=== PATIENT | female | born 1950 | race Caucasian/White ===

== ENCOUNTER → 2019-10-08 12:42 | Outpatient (BNVA) | payer MEDICARE, MEDICAID, SELFPAY | PROVIDERS: Family Provider Family Medicine; PCP Family Medicine; Visit Provider Nurse Practitioner | DX: M25.552 Pain in left hip (principal); M79.601 Pain in right arm; M79.602 Pain in left arm; R29.898 Other symptoms and signs involving the musculoskeletal system; Z79.891 Long term (current) use of opiate analgesic | CPT/HCPCS: 99214 ==

== ENCOUNTER 2020-01-20 11:15 | Outpatient (CLI) | payer MEDICARE, MEDICAID, SELFPAY ==
[2020-01-20 11:43] LABS: Basophils # 0.1 10^3/uL (0.0-0.1); Basophils % 0.7 %; Eosinophils # 0.4 10^3/uL (0.0-0.8); Eosinophils % 3.7 %; Hematocrit 44.9 % (37.0-47.0); Hemoglobin 14.3 g/dL (11.5-15.3); Lymphocytes # 3.2 10^3/uL (0.8-4.8); Lymphocytes % 32.8 %; Mean Corpuscular HGB Conc 31.8 g/dL (30.0-36.0); Mean Corpuscular Hemoglobin 30.6 pg (28.0-34.0); Mean Corpuscular Volume 96.1 fL (81-99); Mean Platelet Volume 9.6 fL (7.4-10.4); Monocytes # 0.7 10^3/uL (0.2-0.9); Monocytes % 6.9 %; Neutrophils # 5.5 10^3/uL (1.8-7.7); Neutrophils % 55.3 %; Nucleated Red Blood Cells % 0 %; Platelet Count 198 10^3/cmm (130-400); Red Blood Count 4.67 10^6/uL (4.1-5.3); Red Cell Distribution Width 12.6 % (12.1-15.1); White Blood Count 9.9 10^3/uL (4.0-10.0)
[2020-01-20 12:16] LABS: Alanine Aminotransferase 12 U/L (0-33); Alkaline Phosphatase 120 IU/L (35-105); Anion Gap 18.2 (5-19); Aspartate Amino Transferase 12 U/L (0-32); Blood Urea Nitrogen 8 mg/dL (8-23); Calcium 9.3 mg/dL (8.5-10.5); Carbon Dioxide 23 mmol/L (22-29); Chloride 102 mmol/L (98-107); Globulin 1.6 g/dL (1.3-4.6); Glucose 116 mg/dL (65-115); Lactate Dehydrogenase 193 U/L (135-214); Osmolality Calculated 285 mOsm/kg (285-295); Potassium 4.2 mmol/L (3.5-5.1); Sodium 139 mmol/L (136-145); Total Bilirubin 0.6 mg/dL (0.15-1.2); Total Protein 5.6 g/dL (6.6-8.7)
--- NOTE | 2020-01-23 15:01 | ONC FU_ITS ---
Dr. Reyna Patient Follow-Up Note Patient: Carly Marvin Unit #: [id number]: 1950 Dicatated By: Selwyn Reyna M.D.Date of Visit:Jan 20, 2020 Onc Med Follow-up/Prog Note Chief Complaint: Lymphoma. History of Present Illness: This is a 69 year-old woman with grade 3 follicular B-cell lymphoma, stage IIIA by clinical evaluation. The lymphoma was initially diagnosed by cervical lymph node biopsy in November of 2009. She had clinical stage IIIA disease with PET/CT suspicious for additional involvement in right submandibular and mesenteric lymph nodes. She was treated with 4 cycles of bendamustine/Rituxan, which she completed in March of 2010. She appeared to have a complete response by followup PET/CT. She was then given maintenance Rituxan at 3-month intervals. As of December 2011, she had completed 6 of 8 planned cycles of maintenance therapy. It was stopped at that point because she had become severely neutropenic, presumably due to Rituxan. She had complete recovery and during subsequent followup there was no evidence of recurrence/progression of the lymphoma. On her for a followup visit in June 2015 she was concerned about a possible lump on the left side of her neck. She appeared to have enlarged submandibular glands bilaterally, but I did not feel any definite lymphadenopathy. She subsequently was scheduled for restaging CT scans, which showed some mild right iliac chain adenopathy measuring in the range of 9-11 mm, felt to be nonspecific. There was no other adenopathy noted, and at that point she just remained on observation. In June 2017 she presented with new left jugulodigastric adenopathy. She was referred to Dr. George. On 08/28/2017 she underwent excisional biopsy of deep left jugulodigastric neck mass and direct laryngoscopy with biopsy of a lesion at the left base of tongue. Pathology was benign. Her other medical illnesses include hypertension, hypercholesterolemia, mitral regurgitation, obstructive sleep apnea, hypothyroidism, and depression. On 04/23/2017 she underwent extracorporeal shockwave lithotripsy to a left renal calculus. She also underwent cystoscopy with left ureteral stent placement. In February 2018 she underwent cystoscopy with laser lithotripsy and ureteral stent placement for another left ureteral stone. INTERIM HISTORY: In July 2018 she had fallen and injured her left hip. Her left hip x-ray on 10/02/2018 showed severe left hip joint osteoarthritis with no evidence for hip fracture. She was evaluated the orthopedic clinic, but she was deemed unsuitable for total hip arthroplasty due to her weight and associated operative risk. On 11/15/2018 she presented to the emergency room with pain and swelling in the left leg, and she was confirmed by venous Doppler to have acute left lower extremity deep vein thrombosis involving the common femoral vein, superficial femoral vein, profunda, popliteal vein, and peroneal trunk. Her CT abdomen/pelvis at that time showed long-term stability of a 2.2 cm mass at the pancreatic head. There was no adenopathy in the abdomen/pelvis. She was noted to have mild narrowing of the colon at the hepatic flexure with adjacent with small adjacent lymph nodes and follow-up colonoscopy was recommended. She continued anticoagulation with apixaban. As of her visit in November 2018 she appeared stable clinically with no obvious progression of the lymphoma. She is seen for a follow-up visit. She is concerned about a new lump on the right side of her neck. She continues to have very limited activity due to her left hip pain. She has only minimal ambulation. Her ECOG score is 3. She has good appetite. She has gained weight. She does not have fever or night sweats. She says she is having a lot of sinus drainage. She has normal cough. She has shortness of breath with effort. She is on CPAP at night. She does not complain of chest pain. She sometimes has difficulty swallowing, and she occasionally has regurgitation. She has having acid reflux symptoms on medication. She has loose stools, typically 3 times a day, but that is chronic. She has no complaints with bladder function. She also has having pain in her left shoulder and arm, and she has limited range of motion at the right shoulder. She does go to pain clinic. She does not complain of headache. She has been having dizziness. She occasionally has numbness in her right hand. Medications: Acetaminophen-Codeine #4 1 Tablet (of 300-60 mg) Oral q 6 hours PRN, Aspirin 1 (81 mg) Tablet Oral daily, Ativan 1 (2 mg) Tablet Oral four times a day PRN, Baclofen 1 Tablet (of 10 mg) Oral four times a day PRN, CeleXA 1 (20 mg) Tablet Oral daily, Dicyclomine HCl 1 Tablet (of 20 mg) Oral four times a day PRN, Eliquis 2.5 Tablet (of 5 mg) Oral b.i.d., Furosemide 1 (40 mg) Tablet Oral daily PRN, Levothyroxine Sodium 1 (100 mcg) Tablet Oral daily, Lipitor 1 (20 mg) Tablet Oral daily, Lisinopril 40 mg - Take 1 Tablet Oral daily, LORazepam 1 Tablet (of 0.5 mg) Oral PRN, Magnesium Oxide 1 (500 ) Tablet Oral daily, Meclizine HCl 1 Tablet (of 25 mg) Oral four times a day, Metoprolol Succinate 1 (25 mg) Tablet SR 24 HR Oral b.i.d., Nitroglycerin 1 Tablet (of 0.4 mg) Tablet, sublingual Sublingual PRN, Ondansetron HCl 1 Tablet (of 8 mg) Oral q 8 hours PRN, Potassium Citrate 1 Tablet (of 15 meq) Oral b.i.d., Protonix 1 Tablet (of 40 mg) Tablet, enteric coated Oral b.i.d., Singulair 1 (10 mg) Tablet Oral daily PRN Allergies: No Known Allergies. Review of Systems: Constitutional - Her energy is low. She has very limited activity due to her left hip. She mostly uses a motorized wheelchair. She can walk a short distance with a wheeled walker. Her appetite is good and she states her weight is up. No fever, night sweats, or hot flashes. ECOG score is 3, ENMT - She has having some sinus drainage. No mouth sores. No sore throat or difficulty swallowing, Hematologic/Lymphatic - No abnormal bruising or bleeding, Respiratory - No shortness of breath. No cough. No pleuritic pain or hemoptysis, Cardiovascular - No angina pain. No palpitations, Gastrointestinal - No nausea or vomiting. She is taking Protonix for heartburn, and it is working okay. She does have more heartburn in the evenings. She has loose stools. No constipation. No blood in the stool or black stools, Genitourinary (F) - No dysuria or hematuria. No urinary frequency. No urgency or incontinence, Musculoskeletal - She has pain in her left hip and her left shoulder and arm. She has limited movement at the right shoulder joint. She is going to pain clinic, Integumentary - No skin complications, Neurologic - No headaches. She has some dizziness. She has occasional tingling in her right hand. No other focal neurologic symptoms, Psychiatric - She has some anxiety, which is adequatelyl managed with citalopram and lorazepam. No depression. No insomnia. Vital Signs: Performed on Jan 20, 2020 12:48 Height - 67.00 in Weight - lbs Temperature - 99.0 F (HIGH) Pulse - 55 /min (LOW) Respiration - 24 /min BP - 152/72 mm(hg) (HIGH) O2 Sat - 96 % Pain - 0 Physical Examination: Constitutional - She does not appear acutely ill, Eyes - Sclerae nonicteric. Conjunctivae clear, ENMT - No lesions noted in the oral cavity, Hematologic/Lymphatic - There are palpable cervical lymph nodes bilaterally, more prominent on the right. There is a small node palpable in the low axillary area on the left side, Respiratory - Lungs show slightly coarse breath sounds bilaterally, Cardiovascular - Heart rhythm is regular. There is a II/ systolic murmur. There is no gallop or rub noted, Abdomen - Distended. Liver and spleen are not enlarged. There is no abdominal mass or ascites noted and there is no inguinal adenopathy, Extremities - Mild pedal edema, Neurologic - No focal neurologic deficits noted. Lab/Imaging: Test performed on Jan 20, 2020 11:32 LDH (Total) 193 U/L Sodium 139 mmol/L Potassium 4.2 mmol/L Chloride 102 mmol/L CO2 23 mmol/L Anion Gap 18.2 BUN 8 mg/dL Creatinine 0.7 mg/dL Cr Clearance (Est) 170.3900 mL/min Glucose 116 mg/dL Calcium 9.3 mg/dL Protein, Total 5.6 g/dL Albumin 4.0 g/dL Globulin 1.6 g/dL Bilirubin, Total 0.6 mg/dL ALT (SGPT) 12 U/L AST (SGOT) 12 U/L Alkaline Phosphatase 120 IU/L WBC 9.9 10 3/uL RBC 4.67 10 6/uL HGB 14.3 g/dL HCT 44.9 % MCV 96.1 fL MCH 30.6 pg MCHC 31.8 g/dL RDW 12.6 % Platelet Count 198 10 3/cmm MPV 9.6 fL Neutrophils 5.5 10 3/uL Lymphocytes 3.2 10 3/uL Monocytes 0.7 10 3/uL Eosinophils 0.4 10 3/uL Basophils 0.1 10 3/uL Neutrophil % 55.3 % Lymphocyte % 32.8 % Monocyte % 6.9 % Eosinophil % 3.7 % Basophils % 0.7 % NRBC % 0 % Impression: 1. Patient with grade 3 follicular B-cell lymphoma, stage IIIA, initially diagnosed by left cervical lymph node biopsy in November 2009. 2. She had a good response to treatment with bendamustine/Rituxan, completed in March of 2010, followed by an abbreviated course of maintenance Rituxan, completed in December 2011. She has since then been on observation/expectant management. Her other medical illnesses include: 3. Hypertension. 4. Hyperlipidemia. 5. Hypothyroidism. 6. Obstructive sleep apnea. 7. Mitral regurgitation. 8. She underwent lithotripsy/ureteral stent placement for left renal calculus in March 2017. 9. Depression. In July 2018 she had fallen at home and sustaining injury to her left hip. Subsequent x-ray showed no evidence of hip fracture, she does have severe osteoarthritis of the left hip joint. She has been deemed ineligible for total hip arthroplasty due to her weight and surgical risk. She is being managed symptomatically. On 11/15/2018 she presented to the emergency room with pain and swelling in the left leg, and she was found to have extensive deep vein thrombosis. She is now on anticoagulation with apixaban. CT abdomen/pelvis at that time showed no evidence of recurrence of lymphoma, but there was mild narrowing of the colon the hepatic flexure, and follow-up colonoscopy was recommended. During follow-up she has had ongoing problems with the left hip pain, which has severely restricted her activity. As of her follow-up visit in November 2018 there had been no evidence of recurrence/progression of her lymphoma. She presents now with new cervical adenopathy and possibly some left axillary adenopathy. Plan: She will be scheduled for restaging PET/CT, but she prefers to put that off until next month. She will have further evaluation as indicated. Signed By: Selwyn Reyna M.D. <<Signature on File>>
== END 2020-01-20 11:16 | disposition home or self-care (01) ==
LOC: ONCMED 11:18
PROVIDERS: PCP Family Medicine; Visit Provider Internal Medicine Medical Oncology
DX: C82.31 Follicular lymphoma grade IIIa, lymph nodes of head, face, and neck (principal); R59.0 Localized enlarged lymph nodes; M25.552 Pain in left hip; I10 Essential (primary) hypertension; E78.5 Hyperlipidemia, unspecified; E03.9 Hypothyroidism, unspecified; G47.33 Obstructive sleep apnea (adult) (pediatric); I34.0 Nonrheumatic mitral (valve) insufficiency; F32.9 Major depressive disorder, single episode, unspecified; Z87.442 Personal history of urinary calculi
CPT/HCPCS: 80053; 83615; 85025; 99214

== ENCOUNTER → 2020-01-27 12:47 | Outpatient (BNVA) | payer MEDICARE, MEDICAID, SELFPAY | PROVIDERS: PCP Family Medicine; Visit Provider Anesthesiology | DX: M25.552 Pain in left hip (principal); M79.601 Pain in right arm; M79.602 Pain in left arm; Z79.891 Long term (current) use of opiate analgesic | CPT/HCPCS: 99214 ==

== ENCOUNTER 2020-02-12 08:09 | Outpatient (CLI) | payer MEDICARE, MEDICAID, SELFPAY ==
--- NOTE | 2020-02-12 08:22 | CT_ITS ---
WS: [id number] CT scan of the neck. Additional two-dimensional coronal and sagittal reconstruction was performed. Clinical Data: LYMPHOMA Comparison: None. DLP: 1786.[address] scans at [facility] use at least one of these dose optimization techniques: automat ed exposure control; mA and/or kV adjustment per patient size (includes targeted exams where dose is matched to clinical indication); or iterative reconstruction. Findings: There is massive lymphadenopathy throughout the neck. The lymphadenopathy extends from the supraclavi cular region to the skull base. There is a marker on the right side of the face which is overlying a lymph node that is within the right parotid gland. The salivary glands are otherwise unremarkable. Th ere is no prevertebral soft tissue swelling. The larynx is symmetric. The thyroid gland shows normal enhancement. The floor of the mouth and parapharyngeal spaces are normal. The oral cavity is unremark able. The common carotid arteries bifurcate normally. There is minimal calcification at the origins of the internal carotid arteries. The cervical spine is osteoarthritic change with disc space narrowing from C4 through C7 with loss of the normal lordotic curve. Prevertebral soft tissue swelling is seen. The lung apices show no abnormalities. The portions of the intracranial circulation which are seen demon strate no abnormalities. No erosion of the skull or skull base is seen. CT/CT neck w con* [id number] Impression: 1. Extensive lymphadenopathy of the neck unchanged from before. 2. Small metal marker overlies a lymph node within the right parotid gland.
[2020-02-12] MEDS: iohexol 300 mg/mL 100 mL Btl IV (08:40)
== END 2020-02-12 08:10 | disposition home or self-care (01) ==
LOC: RADWPI 08:15
PROVIDERS: Family Provider Family Medicine; PCP Family Medicine; Visit Provider Internal Medicine Medical Oncology
DX: C82.28 Follicular lymphoma grade III, unspecified, lymph nodes of multiple sites (principal); R59.9 Enlarged lymph nodes, unspecified
CPT/HCPCS: 70491; Q9967

== ENCOUNTER 2020-03-22 08:23 | Outpatient (CLI) | payer MEDICARE, MEDICAID, SELFPAY ==
--- NOTE | 2020-03-22 09:28 | ONC FU_ITS ---
Dr. Reyna Patient Follow-Up Note Patient: Carly Marvin Unit #: [id number]: [id number] Dicatated By: Selwyn Reyna M.D.Date of Visit:Mar 22, 2020 Onc Med Follow-up/Prog Note Chief Complaint: Lymphoma. History of Present Illness: This is a 69 year-old woman with grade 3 follicular B-cell lymphoma, stage IIIA by clinical evaluation. The lymphoma was initially diagnosed by cervical lymph node biopsy in November of 2009. She had clinical stage IIIA disease with PET/CT suspicious for additional involvement in right submandibular and mesenteric lymph nodes. She was treated with 4 cycles of bendamustine/Rituxan, which she completed in March of 2010. She appeared to have a complete response by followup PET/CT. She was then given maintenance Rituxan at 3-month intervals. As of December 2011, she had completed 6 of 8 planned cycles of maintenance therapy. It was stopped at that point because she had become severely neutropenic, presumably due to Rituxan. She had complete recovery and during subsequent followup there was no evidence of recurrence/progression of the lymphoma. On her for a followup visit in June 2015 she was concerned about a possible lump on the left side of her neck. She appeared to have enlarged submandibular glands bilaterally, but I did not feel any definite lymphadenopathy. She subsequently was scheduled for restaging CT scans, which showed some mild right iliac chain adenopathy measuring in the range of 9-11 mm, felt to be nonspecific. There was no other adenopathy noted, and at that point she just remained on observation. In June 2017 she presented with new left jugulodigastric adenopathy. She was referred to Dr. George. On 08/28/2017 she underwent excisional biopsy of deep left jugulodigastric neck mass and direct laryngoscopy with biopsy of a lesion at the left base of tongue. Pathology was benign. Her other medical illnesses include hypertension, hypercholesterolemia, mitral regurgitation, obstructive sleep apnea, hypothyroidism, and depression. On 04/23/2017 she underwent extracorporeal shockwave lithotripsy to a left renal calculus. She also underwent cystoscopy with left ureteral stent placement. In February 2018 she underwent cystoscopy with laser lithotripsy and ureteral stent placement for another left ureteral stone. INTERIM HISTORY: In July 2018 she had fallen and injured her left hip. Her left hip x-ray on 10/02/2018 showed severe left hip joint osteoarthritis with no evidence for hip fracture. She was evaluated the orthopedic clinic, but she was deemed unsuitable for total hip arthroplasty due to her weight and associated operative risk. On 11/15/2018 she presented to the emergency room with pain and swelling in the left leg, and she was confirmed by venous Doppler to have acute left lower extremity deep vein thrombosis involving the common femoral vein, superficial femoral vein, profunda, popliteal vein, and peroneal trunk. Her CT abdomen/pelvis at that time showed long-term stability of a 2.2 cm mass at the pancreatic head. There was no adenopathy in the abdomen/pelvis. She was noted to have mild narrowing of the colon at the hepatic flexure with adjacent with small adjacent lymph nodes and follow-up colonoscopy was recommended. She continued anticoagulation with apixaban. As of her visit in November 2018 she appeared stable clinically with no obvious progression of the lymphoma. She was seen for a follow-up visit again on 01/20/2020. At that point she had developed recurrence of cervical lymphadenopathy. Her neck CT on 02/12/2020 reeported massive lymphadenopathy throughout the neck. The adenopathy was noted to extend from the supraclavicular region to the skull base. She had further evaluation with PET/CT on 02/14/2020. It showed multiple FDG positive bilateral cervical lymph nodes felt to be most consistent with recurrent follicular B-cell lymphoma. Nodes were evident in the bilateral cervical levels II through V, and small FDG positive lymph nodes were noted in the supraclavicular region bilaterally as well. An index right to a node measured 1.9 cm with SUV 16.9. Uptake at the base of tongue, lingula tonsil, and adenoid tissue was consistent either with lymphoma or reactive uptake. There were no other sites of potential involvement noted on that study. She is seen for a follow-up visit. Her main complaint is that she has trouble with her legs, enough that she is no longer able to ambulate. She has pain with it, and she is getting treatment through the pain clinic. She complains that her blood pressure recently has been high. She sees Dr. Herzog for primary care. She is obviously aware of the adenopathy in her neck, but she does not have any symptoms associated with it. She recalls having had pretty severe night sweating back in 2009 when she originally underwent treatment for lymphoma, but she currently is not having night sweating or any other obvious systemic symptoms. Medications: Acetaminophen-Codeine #3 2 Tablet (of 300-30 mg) Oral q 6 hours PRN, Aspirin 1 (81 mg) Tablet Oral daily, Baclofen 1 Tablet (of 10 mg) Oral four times a day PRN, CeleXA 1 (20 mg) Tablet Oral daily, Dicyclomine HCl 1 Tablet (of 20 mg) Oral four times a day PRN, Eliquis 2.5 Tablet (of 5 mg) Oral b.i.d., Furosemide 1 (40 mg) Tablet Oral daily PRN, Levothyroxine Sodium 1 (100 mcg) Tablet Oral daily, Lipitor 1 (20 mg) Tablet Oral daily, Lisinopril 40 mg - Take 1 Tablet Oral daily, LORazepam 1 Tablet (of 0.5 mg) Oral PRN, Magnesium Oxide 2 (500 ) Tablet Oral daily, Meclizine HCl 1 Tablet (of 25 mg) Oral four times a day PRN, Metoprolol Succinate 1 (25 mg) Tablet SR 24 HR Oral b.i.d., Nitroglycerin 1 Tablet (of 0.4 mg) Tablet, sublingual Sublingual PRN, Ondansetron HCl 1 Tablet (of 8 mg) Oral q 8 hours PRN, Potassium Citrate 1 Tablet (of 15 meq) Oral b.i.d., Protonix 1 Tablet (of 40 mg) Tablet, enteric coated Oral b.i.d., Singulair 1 (10 mg) Tablet Oral daily PRN Allergies: No Known Allergies. Vital Signs: Performed on Mar 22, 2020 08:34 Height - 67.00 in Weight - 323.2 lbs (HIGH) BSA - 2.48 sq.m BMI - 50.62 (HIGH) Temperature - 97.0 F (LOW) Pulse - 70 /min Respiration - 26 /min BP - 171/75 mm(hg) (HIGH) O2 Sat - 96 % Pain - 8 Physical Examination: Constitutional - She has limited mobility, Eyes - Sclerae nonicteric. Conjunctivae clear, ENMT - No lesions noted in the oral cavity, Hematologic/Lymphatic - There is bilateraly cervical adenopathy, more prominent on the right, measuring 3-4 cm. There is no clavicular or axillary adenopathy noted, Respiratory - Lungs sound clear, Cardiovascular - Heart rhythm is regular. There is a II/ systolic murmur. There is no gallop or rub noted, Abdomen - Distended. Liver and spleen are not enlarged. There is no abdominal mass or ascites noted and there is no inguinal adenopathy, Extremities - Mild lower extremity edema, Neurologic - No focal neurologic deficits noted. Lab/Imaging: Test performed on Jan 20, 2020 11:32 LDH (Total) 193 U/L Sodium 139 mmol/L Potassium 4.2 mmol/L Chloride 102 mmol/L CO2 23 mmol/L Anion Gap 18.2 BUN 8 mg/dL Creatinine 0.7 mg/dL Cr Clearance (Est) 170.3900 mL/min Glucose 116 mg/dL Calcium 9.3 mg/dL Protein, Total 5.6 g/dL Albumin 4.0 g/dL Globulin 1.6 g/dL Bilirubin, Total 0.6 mg/dL ALT (SGPT) 12 U/L AST (SGOT) 12 U/L Alkaline Phosphatase 120 IU/L WBC 9.9 10 3/uL RBC 4.67 10 6/uL HGB 14.3 g/dL HCT 44.9 % MCV 96.1 fL MCH 30.6 pg MCHC 31.8 g/dL RDW 12.6 % Platelet Count 198 10 3/cmm MPV 9.6 fL Neutrophils 5.5 10 3/uL Lymphocytes 3.2 10 3/uL Monocytes 0.7 10 3/uL Eosinophils 0.4 10 3/uL Basophils 0.1 10 3/uL Neutrophil % 55.3 % Lymphocyte % 32.8 % Monocyte % 6.9 % Eosinophil % 3.7 % Basophils % 0.7 % NRBC % 0 % Impression: 1. Patient with grade 3 follicular B-cell lymphoma, stage IIIA, initially diagnosed by left cervical lymph node biopsy in November 2009. 2. She had a good response to treatment with bendamustine/Rituxan, completed in March of 2010, followed by an abbreviated course of maintenance Rituxan, completed in December 2011. She has since then been on observation/expectant management. Her other medical illnesses include: 3. Hypertension. 4. Hyperlipidemia. 5. Hypothyroidism. 6. Obstructive sleep apnea. 7. Mitral regurgitation. 8. She underwent lithotripsy/ureteral stent placement for left renal calculus in March 2017. 9. Depression. In July 2018 she had fallen at home and sustaining injury to her left hip. Subsequent x-ray showed no evidence of hip fracture, she does have severe osteoarthritis of the left hip joint. She has been deemed ineligible for total hip arthroplasty due to her weight and surgical risk. She is being managed symptomatically. On 11/15/2018 she presented to the emergency room with pain and swelling in the left leg, and she was found to have extensive deep vein thrombosis. She is now on anticoagulation with apixaban. CT abdomen/pelvis at that time showed no evidence of recurrence of lymphoma, but there was mild narrowing of the colon the hepatic flexure, and follow-up colonoscopy was recommended. During follow-up she has had ongoing problems with the left hip pain, which has severely restricted her activity. As of her follow-up visit in November 2018 there had been no evidence of recurrence/progression of her lymphoma. In December 2019 she presented with obvious cervical adenopathy bilaterally. This was confirmed with subsequent neck CT and restaging PET/CT. The PET/CT, though, showed no other areas of obvious involvement with lymphoma, and thus far she has not been overtly symptomatic with the cervical adeonopathy. Plan: As long as her lymphoma is localized in the neck area and not causing obvious symptoms, she she can be followed on observation/expectant management. I will plan to see her again in July, which will be a 6-month interval from her scans. In the meantime, she is to follow-up with Dr. Herzog regarding her elevated blood pressure. Signed By: Selwyn Reyna M.D. <<Signature on File>>
== END 2020-03-22 08:24 | disposition home or self-care (01) ==
LOC: ONCMED 08:23
PROVIDERS: PCP Family Medicine; Visit Provider Internal Medicine Medical Oncology
DX: C82.31 Follicular lymphoma grade IIIa, lymph nodes of head, face, and neck (principal); I10 Essential (primary) hypertension; E78.5 Hyperlipidemia, unspecified; E03.9 Hypothyroidism, unspecified; G47.33 Obstructive sleep apnea (adult) (pediatric); I34.0 Nonrheumatic mitral (valve) insufficiency; F32.9 Major depressive disorder, single episode, unspecified; Z96.0 Presence of urogenital implants; Z87.442 Personal history of urinary calculi; Z86.718 Personal history of other venous thrombosis and embolism; Z79.01 Long term (current) use of anticoagulants
CPT/HCPCS: G0463

== ENCOUNTER → 2020-04-09 08:11 | Outpatient (BNVA) | payer MEDICARE, MEDICAID, SELFPAY | PROVIDERS: PCP Family Medicine; Visit Provider Anesthesiology | DX: M25.552 Pain in left hip (principal); M79.601 Pain in right arm; M79.602 Pain in left arm; Z79.891 Long term (current) use of opiate analgesic | CPT/HCPCS: 99214 ==

== ENCOUNTER → 2020-07-06 09:14 | Outpatient (BNVA) | payer MEDICARE, SELFPAY | PROVIDERS: PCP Family Medicine; Visit Provider Anesthesiology | DX: M25.552 Pain in left hip (principal); M25.512 Pain in left shoulder; M79.601 Pain in right arm; M79.602 Pain in left arm; Z79.891 Long term (current) use of opiate analgesic | CPT/HCPCS: 99214 ==

== ENCOUNTER 2020-08-24 08:11 | Outpatient (CLI) | payer MEDICARE, MEDICAID, SELFPAY ==
[2020-08-24 08:43] LABS: Basophils # 0.1 10^3/uL (0.0-0.1); Basophils % 0.5 %; Eosinophils # 0.4 10^3/uL (0.0-0.8); Eosinophils % 3.7 %; Hematocrit 43.4 % (37.0-47.0); Hemoglobin 13.7 g/dL (11.5-15.3); Lymphocytes # 3.1 10^3/uL (0.8-4.8); Lymphocytes % 32.8 %; Mean Corpuscular HGB Conc 31.6 g/dL (30.0-36.0); Mean Corpuscular Hemoglobin 30.6 pg (28.0-34.0); Mean Corpuscular Volume 96.9 fL (81-99); Mean Platelet Volume 9.9 fL (7.4-10.4); Monocytes # 0.6 10^3/uL (0.2-0.9); Monocytes % 6.7 %; Neutrophils # 5.35 10^3/uL (1.8-7.7); Neutrophils % 55.8 %; Nucleated Red Blood Cells % 0 %; Platelet Count 189 10^3/cmm (130-400); Red Blood Count 4.48 10^6/uL (4.1-5.3); Red Cell Distribution Width 12.4 % (12.1-15.1); White Blood Count 9.6 10^3/uL (4.0-10.0)
[2020-08-24 09:09] LABS: Alanine Aminotransferase 18 U/L (0-33); Albumin Level 3.5 g/dL (3.5-5.2); Alkaline Phosphatase 105 IU/L (35-105); Anion Gap 12.4 (5-19); Aspartate Amino Transferase 15 U/L (0-32); Blood Urea Nitrogen 15 mg/dL (8-23); Carbon Dioxide 28 mmol/L (22-29); Chloride 102 mmol/L (98-107); Globulin 2.1 g/dL (1.3-4.6); Glucose 126 mg/dL (65-115); Lactate Dehydrogenase 162 U/L (135-214); Osmolality Calculated 288 mOsm/kg (285-295); Potassium 4.4 mmol/L (3.5-5.1); Sodium 138 mmol/L (136-145); Total Bilirubin 0.4 mg/dL (0.15-1.2); Total Protein 5.6 g/dL (6.6-8.7)
== END 2020-08-24 08:12 | disposition home or self-care (01) ==
LOC: ONCMED 15:17
PROVIDERS: PCP Family Medicine; Visit Provider Internal Medicine Medical Oncology
DX: C82.28 Follicular lymphoma grade III, unspecified, lymph nodes of multiple sites (principal); I10 Essential (primary) hypertension
CPT/HCPCS: 80053; 83615; 85025

== ENCOUNTER 2020-08-30 06:01 | Outpatient (CLI) | payer MEDICARE, MEDICAID, SELFPAY ==
--- NOTE | 2020-08-30 15:25 | ONC FU_ITS ---
Dr. Reyna Patient Follow-Up Note Patient: Carly Marvin Unit #: [id number]: 1950 Dicatated By: Selwyn Reyna M.D.Date of Visit:Aug 30, 2020 Onc Med Follow-up/Prog Note Chief Complaint: Lymphoma. History of Present Illness: This is a 70 year-old woman with grade 3 follicular B-cell lymphoma, stage IIIA by clinical evaluation. The lymphoma was initially diagnosed by cervical lymph node biopsy in November of 2009. She had clinical stage IIIA disease with PET/CT suspicious for additional involvement in right submandibular and mesenteric lymph nodes. She was treated with 4 cycles of bendamustine/Rituxan, which she completed in March of 2010. She appeared to have a complete response by followup PET/CT. She was then given maintenance Rituxan at 3-month intervals. As of December 2011, she had completed 6 of 8 planned cycles of maintenance therapy. It was stopped at that point because she had become severely neutropenic, presumably due to Rituxan. She had complete recovery and during subsequent followup there was no evidence of recurrence/progression of the lymphoma. On her for a followup visit in June 2015 she was concerned about a possible lump on the left side of her neck. She appeared to have enlarged submandibular glands bilaterally, but I did not feel any definite lymphadenopathy. She subsequently was scheduled for restaging CT scans, which showed some mild right iliac chain adenopathy measuring in the range of 9-11 mm, felt to be nonspecific. There was no other adenopathy noted, and at that point she just remained on observation. In June 2017 she presented with new left jugulodigastric adenopathy. She was referred to Dr. George. On 08/28/2017 she underwent excisional biopsy of deep left jugulodigastric neck mass and direct laryngoscopy with biopsy of a lesion at the left base of tongue. Pathology was benign. Her other medical illnesses include hypertension, hypercholesterolemia, mitral regurgitation, obstructive sleep apnea, hypothyroidism, and depression. On 04/23/2017 she underwent extracorporeal shockwave lithotripsy to a left renal calculus. She also underwent cystoscopy with left ureteral stent placement. In February 2018 she underwent cystoscopy with laser lithotripsy and ureteral stent placement for another left ureteral stone. In October 2018 she was diagnosed with extensive deep vein thrombosis of the left leg. At that point she began on anticoagulation with apixaban. INTERIM HISTORY: In December 2019 she presented with recurrence of cervical lymphadenopathy. Her neck CT on 02/12/2020 reeported massive lymphadenopathy throughout the neck. The adenopathy was noted to extend from the supraclavicular region to the skull base. She had further evaluation with PET/CT on 02/14/2020. It showed multiple FDG positive bilateral cervical lymph nodes felt to be most consistent with recurrent follicular B-cell lymphoma. Nodes were evident in the bilateral cervical levels II through V, and small FDG positive lymph nodes were noted in the supraclavicular region bilaterally as well. An index right to a node measured 1.9 cm with SUV 16.9. Uptake at the base of tongue, lingula tonsil, and adenoid tissue was consistent either with lymphoma or reactive uptake. There were no other sites of potential involvement noted on that study. As she was not overtly symptomatic with the cervical adenopathy, she continued on observation/expectant management. She is seen for a follow-up visit. She has been feeling about the same. She continues to have significant left hip pain, which limits her activity. Her ECOG score is 3. She has good appetite. She has no fever or night sweats. She does complain that she itches a lot. She is on CPAP. She says her breathing is about like it was. She has just occasional nonproductive cough. She does not complain of chest pain. She has no GI complaints other than diarrhea, which she says is normal for her. Bladder function has been adequate with furosemide. She has no other joint or bone pain. She does not complain of headache. She has occasional orthostatic lightheadedness. She occasionally has numbness in her legs. Medications: Acetaminophen-Codeine #3 2 Tablet (of 300-30 mg) Oral q 6 hours PRN, Aspirin 1 (81 mg) Tablet Oral daily, Baclofen 1 Tablet (of 10 mg) Oral four times a day PRN, CeleXA 1 (20 mg) Tablet Oral daily, Centrum Silver 50+Women 1 Tablet Oral daily, Dicyclomine HCl 1 Tablet (of 20 mg) Oral four times a day PRN, Eliquis 2.5 Tablet (of 5 mg) Oral b.i.d., Furosemide 1 (40 mg) Tablet Oral daily PRN, Levothyroxine Sodium 1 (100 mcg) Tablet Oral daily, Lipitor 1 (20 mg) Tablet Oral daily, Lisinopril 40 mg - Take 1 Tablet Oral daily, LORazepam 1 Tablet (of 0.5 mg) Oral PRN, Magnesium Oxide 2 (500 ) Tablet Oral daily, Meclizine HCl 1 Tablet (of 25 mg) Oral four times a day PRN, Metoprolol Succinate 1 (25 mg) Tablet SR 24 HR Oral b.i.d., Nitroglycerin 1 Tablet (of 0.4 mg) Tablet, sublingual Sublingual PRN, Ondansetron HCl 1 Tablet (of 8 mg) Oral q 8 hours PRN, Potassium Citrate 1 Tablet (of 15 meq) Oral b.i.d., Protonix 1 Tablet (of 40 mg) Tablet, enteric coated Oral b.i.d., Singulair 1 (10 mg) Tablet Oral daily PRN Allergies: No Known Allergies. Vital Signs: Performed on Aug 30, 2020 13:03 Height - 67.00 in Weight - 330 lbs (HIGH) BSA - 2.50 sq.m BMI - 51.69 (HIGH) Temperature - 97.6 F (LOW) Pulse - 65 /min Respiration - 18 /min O2 Sat - 96 % Physical Examination: Constitutional - She appears somewhat weak generally and she has limited mobility, Eyes - Sclerae nonicteric. Conjunctivae clear, ENMT - No lesions noted in the oral cavity, Hematologic/Lymphatic - There are small posterior cervical nodes palpable bilaterally and there appears to be a more prominent node in the submandibular area on the right side. There is some associated soft tissue swelling. I do not feel any clavicular or axillary adenopathy, Respiratory - Lungs sound clear, Cardiovascular - Heart rhythm is regular. There is a II/ systolic murmur. There is no gallop or rub noted, Abdomen - Distended. Liver and spleen are not enlarged. There is no abdominal mass or ascites noted and there is no inguinal adenopathy, Extremities - Mild lower extremity edema, Neurologic - No focal neurologic deficits noted. Lab/Imaging: CBC shows hemoglobin 13.7 g, white blood cell count 9600, and platelet count 189,000. Comprehensive metabolic profile is unremarkable. LDH is normal at 162 U/L. Problem List: 1. Grade 3 follicular B-cell lymphoma, stage IIIA, initially diagnosed by left cervical lymph node biopsy in November 2009. 2. In October 2018 she was found to have extensive deep vein thrombosis of the left leg. She has been on anticoagulation with apixaban. 3. Hypertension. 4. Hyperlipidemia. 5. Hypothyroidism. 6. Obstructive sleep apnea. 7. Mitral regurgitation. 8. She underwent lithotripsy/ureteral stent placement for left renal calculus in March 2017. 9. Depression. Problems Addressed with this Encounter and Plan: Grade 3 follicular B-cell lymphoma, stage IIIA, initially diagnosed by left cervical lymph node biopsy in November 2009. She had a good response to treatment with bendamustine/Rituxan, completed in March of 2010, followed by an abbreviated course of maintenance Rituxan, completed in December 2011. She was then folllowed on observation/expectant management. In December 2019 she presented with obvious cervical adenopathy bilaterally. This was confirmed with subsequent neck CT and restaging PET/CT. The PET/CT, though, showed no other areas of obvious involvement with lymphoma. As she was not overtly symptomatic with the cervical adeonopathy, there appeared to be no indication for treatment. She has since then remained stable clinically. She still has very limited activity due to her left hip pain. She does not have any evidence for symptomatic progression of the lymphoma. As such, she remains on observation/expectant management. I will see her again with restaging CT scans in 6 months. Signed By: Selwyn Reyna M.D. <<Signature on File>>
== END 2020-08-30 06:02 | disposition home or self-care (01) ==
LOC: ONCMED 06:04
PROVIDERS: PCP Family Medicine; Visit Provider Internal Medicine Medical Oncology
DX: C82.31 Follicular lymphoma grade IIIa, lymph nodes of head, face, and neck (principal); M25.552 Pain in left hip; Z92.22 Personal history of monoclonal drug therapy
CPT/HCPCS: G0463

== ENCOUNTER → 2020-10-01 08:03 | Outpatient (BNVA) | payer MEDICARE, SELFPAY | PROVIDERS: PCP Family Medicine; Visit Provider Anesthesiology | DX: M25.552 Pain in left hip (principal); Z79.891 Long term (current) use of opiate analgesic | CPT/HCPCS: 99213 ==

== ENCOUNTER 2020-11-05 16:34 | Emergency (ER) | payer MEDICARE, MEDICAID, SELFPAY ==
[2020-11-05 16:38] VITALS: BP 125/68; PULSE 82; RESP 18; TEMP 36.8; O2SAT 93; BMI 52.9
[2020-11-05 16:44] VITALS: BP 125/68; PULSE 80; RESP 20; O2SAT 94
--- NOTE | 2020-11-05 16:53 | XRR_ITS ---
PROCEDURE INFORMATION: Exam: XR Left Hip Exam date and time: 11/05/2020 5:09 PM Age: 70 years old Clinical indication: Hip pain; Left hip; Additional info: Fall pain TECHNIQUE: Imaging protocol: XR Left hip. Views: 2 or 3 views hip with pelvis when performed. COMPARISON: CT abdomen pelvis w con* [id number] 11/15/2018 2:59 PM FINDINGS: Bones/joints: No acute displaced fracture or dislocation. Severe osteoarthritis of the hip. Soft tissues: Unremarkable. XR/XR hip LT 2-3V wo/w pel* [id number] IMPRESSION: 1. No acute displaced fracture or dislocation. 2. Nondisplaced or incomplete fracture may not be evident on this exam. If there is continued clinical concern for femoral neck fracture consider CT or MRI.
--- NOTE | 2020-11-05 16:53 | XRR_ITS ---
PROCEDURE INFORMATION: Exam: XR Left Knee Exam date and time: 11/05/2020 5:09 PM Age: 70 years old Clinical indication: Pain; Knee; Left TECHNIQUE: Imaging protocol: XR Left knee. Views: 3 views. COMPARISON: No relevant prior studies available. FINDINGS: Bones/joints: No acute displaced fracture or dislocation. A posterior fabella is noted. Severe joint space narrowing, greatest in the medial compartment with remodeling of the joint surfaces and marginal osteophytosis. Soft tissues: Normal. XR/XR knee LT 3V* [id number] IMPRESSION: Severe tricompartmental osteoarthritis.
--- NOTE | 2020-11-05 16:54 | W.ED.WEAKNES ---
HPI - Weakness General: Chief complaint: Weakness Stated complaint: GENERALIZED WEAKNESS Time Seen by Provider: 11/05/20 16:43 History of Present Illness: HPI Narrative: 70-year-old female fell at home. She usually gets out of bed to go to the restroom. She got up with a walker stumbled tripped and fell. She has had problems in the past with ambulation as well she only ambulates with a walker. We discussed with her she admits that she stays in bed except for when she has to go to the restroom. Her family brings her all of her meals. She denies striking her head she denies loss consciousness she has no chest pain. MD Complaint: generalized weakness and difficulty walking Duration: progressively worsening Location: LLE (Hip and knee) Severity: moderate Quality: aching Relieving factors: movement Exacerbating factors: rest Associated symptoms: Reports myalgias; Denies chest pain, chills, confusion, melena, decreased appetite, diaphoresis, dysuria, easy bruising, fever(s), headache(s), nausea, rash, short of breath, syncope or vomiting Review of Systems Const: Denies: fever(s), chills or diaphoresis ENMT: Denies: throat pain, ear or mastoid pain, nasal discharge or nasal congestion Card: Denies: chest pain or syncope Resp: Denies: dyspnea, productive cough or non-productive cough GI: Denies: nausea, vomiting or melena : Denies: dysuria Skin/Breast: Denies: rash or pruritus Neuro: Denies: headache(s) or confusion Godwin/Lymph: Denies: easy bruising PFSH ED PFSH: Medical History Benign essential HTN Bilateral arm pain Dyslipidemia (high LDL; low HDL) Encounter for long-term opiate analgesic use History of DVT (deep vein thrombosis) History of rectal injury rectal tear surgery Left hip pain Non-Hodgkin lymphoma Obstructive sleep apnea Opioid contract exists Ventricular arrhythmia Surgical History History of ureter stent Hx of cholecystectomy Hx of dilation and curettage Hx of hysterectomy Hx of laparoscopic gastric banding Hx of tubal ligation Family History Mother Diabetes Hypertension Father Cancer lung Social History Smoking and tobacco status: never smoked Second hand smoke exposure: Yes Alcohol intake: never History of recent travel: No Physical Exam Const: GENERAL APPEARANCE: cooperative ORIENTATION/CONSCIOUSNESS: Yes awake, Yes oriented to person, Yes oriented to place and Yes oriented to time HENMT: COMMON NORMALS: normocephalic, atraumatic, hearing grossly normal bilaterally, external ears normal, EAC's normal, TM's normal bilaterally, Normal nasal mucous membranes and turbinates present, moist oral mucous membranes and oropharynx normal HEAD & SCALP: normocephalic and atraumatic NOSE: Normal nasal mucous membranes and turbinates present EXTERNAL EAR: Yes external ears normal EXTERNAL AUDITORY CANAL: EAC's normal TYMPANIC MEMBRANE: TM's normal bilaterally Eye: COMMON NORMALS: Equal, round and reactive pupils present, EOMs intact bilaterally, conjunctivae normal and no scleral icterus CONJUNCTIVA: Yes conjunctivae normal PUPIL: Yes Equal, round and reactive pupils present Neck/C-Spine: COMMON NORMALS: full ROM, no lymphadenopathy, supple and no JVD Resp: COMMON NORMALS: normal respiratory effort, No retractions, No use of accessory muscles and clear to auscultation bilaterally AUSCULTATION: clear to auscultation bilaterally Cardio: COMMON NORMALS: no JVD, regular rate, regular rhythm and No murmurs present (Cardio) RATE: regular rate RHYTHM: regular rhythm GI: COMMON NORMALS: Soft to palpation and No hepatosplenomegaly present AUSCULTATION: Yes normoactive bowel sounds PALPATION: Yes Soft to palpation, No Tenderness to palpation present (GI), No Guarding due to palpation present (GI) and Yes No hepatosplenomegaly present Extremity: COMMON NORMALS: normal to inspection, capillary refill normal, no clubbing, cyanosis or edema, no calf tenderness and no pedal edema Neuro: SENSORIUM/ORIENTATION: Yes oriented to person, Yes oriented to place and Yes oriented to time Skin: COMMON NORMALS: no rashes or lesions noted GENERAL SKIN EXAM: no rashes or lesions noted Course Vital Signs: Vital signs: Vital Signs Temperature 98.2 F 11/05/20 16:38 Pulse Rate 90 11/05/20 20:34 Respiratory Rate 23 H 11/05/20 20:34 Blood Pressure 143/82 11/05/20 20:34 Pulse Oximetry 97 11/05/20 20:34 MDM - Weakness MDM Narrative: Medical decision making narrative: No acute fracture on x-rays. Reviewed with the patient will discharge home no change in medications. Briefly discussed with her consideration of changing level of care due to the amount of assistance she needs. At this point she prefer to stay home with the assistance of family. Discharge Plan Discharge Patient Disposition: Home Clinical Impression: Fall, Left hip pain Condition: Stable Prescriptions: No Action lisinopril 40 mg tablet 40 mg PO DAILY RF: 0 atorvastatin 20 mg tablet 20 mg PO DAILY RF: 0 alprazolam [Xanax] 0.5 mg tablet 0.5 mg PO BID RF: 0 aspirin 81 mg tablet,chewable 81 mg PO .1 at HS RF: 0 citalopram 20 mg tablet 20 mg PO DAILY RF: 0 potassium citrate 15 mEq tablet extended release 15 meq PO BID RF: 0 baclofen 10 mg tablet 10 mg PO QID RF: 0 levothyroxine 100 mcg capsule 100 mcg PO DAILY RF: 0 furosemide [Lasix] 40 mg tablet 40 mg PO DAILY RF: 0 Eliquis 2.5 mg tablet 2.5 mg PO BID RF: 0 pantoprazole [Protonix] 40 mg tablet,delayed release (DR/EC) 40 mg PO BID RF: 0 metoprolol tartrate 25 mg tablet 25 mg PO BID 30 Days Qty: 60 RF: 5 acetaminophen-codeine 300-30 mg tablet 2 tab PO QID PRN (Reason: pain) 30 Days Qty: 240 RF: 2 diclofenac sodium [Voltaren] 1 % gel 4 g TOPICAL QID Qty: 400 RF: 2 Discharge Orders: Discharge ED (Routine); Ordered 11/05/20 Ordered By: Tawanda De Los Santos Referrals: Akira Herzog MD [Primary Care Provider] - Discharge Diet: Usual diet Discharge Activity: Resume usual activity Patient Instructions: Opioid Safety Coding Level of Care Code ED Cabinetmaker Helper for Sharon Chinchilla
[2020-11-05 17:05] VITALS: BP 122/67; PULSE 84; RESP 16
--- NOTE | 2020-11-05 18:18 | PC.NURSE ---
One of the patient's daughters named Eladia called asking for an update on the patient's condition and disposition. The daughter was not on the list of contacts, so I went asked the patient for verbal consent to discuss her information with the daughter.The patient did consent to discussing her information. I informed the daughter that the patient was resting in bed and that she is up for discharged and informed her that the tests found no change in acuity or injury. The daughter was very pleased and understanding with everything.
[2020-11-05 18:44] VITALS: BP 106/65; PULSE 79; RESP 22; O2SAT 95
--- NOTE | 2020-11-05 20:31 | PC.NURSE ---
dc delayed due to pt's daughter not being comfortable with pt being dc to home. Dr Patricia consulted with pt and family and pt states she wishes to go home. Pt A&0X3, is able to verbalized understanding of risks and benefits of hospital admission. Pt dc to home
[2020-11-05 20:34] VITALS: BP 143/82; PULSE 90; RESP 23; O2SAT 97
--- NOTE | 2020-11-09 10:40 | DCPLANNER ---
medical care manager had message to speak with patients daughter about home health for patient. medical care manager spoke with patients daughter, who stated that patient is needing home health and in home services. medical care manager explained to the daughter that catalytic case operator did not have any notes or documentation to support patient needing home health services. medical care manager asked if patient has been seen by a provider other than the ER, catalytic case operator was told that patient sees primary care physician, Dr. Herzog, and Dr. Reyna. medical care manager called the office Dr. Reyna, spoke with Rhea to see if that office would be able to order home health for patient. medical care manager was told that the office will schedule a follow up appointment for patient with a provider, and will order the home health for patient. medical care manager called patients daughter and informed that daughter that Dr. Mosley office will schedule a follow up appointment for patient.
== END 2020-11-05 20:30 | disposition home or self-care (01) ==
PROVIDERS: Emergency Provider Family Medicine; PCP Family Medicine
DX: M25.552 Pain in left hip (principal); W18.30XA Fall on same level, unspecified, initial encounter; Z79.82 Long term (current) use of aspirin; Z79.01 Long term (current) use of anticoagulants; I10 Essential (primary) hypertension; E78.5 Hyperlipidemia, unspecified; G47.33 Obstructive sleep apnea (adult) (pediatric)
CPT/HCPCS: 73502; 73562; 99282

== ENCOUNTER → 2021-01-13 09:22 | Outpatient (BNVA) | payer MEDICARE, MEDICAID, SELFPAY | PROVIDERS: PCP Family Medicine; Visit Provider Anesthesiology | DX: M25.552 Pain in left hip (principal); Z79.891 Long term (current) use of opiate analgesic | CPT/HCPCS: 99213 ==

== ENCOUNTER 2021-02-18 11:07 | Outpatient (CLI) | payer MEDICARE, MEDICAID, SELFPAY ==
--- NOTE | 2021-02-18 11:16 | CT_ITS ---
WS: [id number] CT CHEST, ABDOMEN, AND PELVIS TECHNIQUE: Contrast-enhanced CT of the chest, abdomen, and pelvis with coronal and sagittal reformatt ed images. CLINICAL INFORMATION: LYMPHOMA COMPARISON: PET/CT February 14, 2020, CT abdomen pelvis October 2018 and February 2018 DLP: 2769.[address] scans at [facility] use at least one of these dose optimization techniques: automat ed exposure control; mA and/or kV adjustment per patient size (includes targeted exams where dose is matched to clinical indication); or iterative reconstruction. CT CHEST: Lymphadenopathy partially visualized in the lower neck at the thoracic inlet. largest lymph nodes measure up to 2.1 CM Involving the supra clavicular regions bilaterally and lower cervical dilan ins. Mild chronic emphysematous changes. No acute pulmonary infiltrates. Subsegmental atelectasis and fibr osis in the lung bases. Calcified granuloma right upper lobe. Normal thyroid gland. Aortic calcification. No mediastinal or hilar lymphadenopathy. Normal caliber t horacic aorta. No axillary lymphadenopathy. Hypertrophic changes thoracic spine. CT ABDOMEN AND PELVIS: Cholecystectomy. Prior hysterectomy and appendectomy. Mild enlargement of the right hepatic lobe. Li abena is otherwise normal. Normal spleen. Proximal duodenum is normal in appearance. Prior gastric band ing. Small esophageal hiatal hernia. Normal portal vein and splenic vein. Normal spleen. Fatty atroph y of the pancreas. Stable 2.2 cm low-attenuation lesion in the pancreatic head. Normal common bile du ct. Adrenal glands are normal. A few prominent lymph nodes in the arnold hepatis are unchanged. Enlarging periaortic lymph nodes have progressed compared to 4 19,019 the largest measuring 12 mm. Le ft proximal common iliac lymph node progressed from previous measuring 11 mm. Additional smaller shot ty periaortic lymph nodes. No evidence of small or large bowel obstruction. No inguinal lymphadenopathy. Adrenal glands are norm al. Normal renal parenchymal enhancement. No hydronephrosis. Tiny bilateral renal cysts. CT/CT chest abd pel w con* IMPRESSION: 1. Lymphadenopathy in the lower neck bilaterally extending into the thoracic i nlet and supra clavicular regions. This was present on the prior PET/CT from . 2. No adenopathy in the chest. 3. New enlarging lymph nodes in the periaortic region and left proximal common iliac chain measuring up to 11 to 12 mm. This is progressed since 2019 and 202 0 PET/CT. Findings are indeterminate but suspicious for early recurrence/progre ssion and recommend further evaluation with PET/CT. 4. Prior gastric banding. 5. Prior cholecystectomy. 6. Long-term stability of the pancreatic low-attenuation lesion in the pancrea tic head measuring 2.2 CCM. 7. No inguinal lymphadenopathy.
[2021-02-18 12:39] LABS: Blood Urea Nitrogen 9 mg/dL (8-23)
[2021-02-18] MEDS: iohexol 300 mg/mL 50 mL Btl PO (13:13)
[2021-02-18] MEDS: iohexol 300 mg/mL 100 mL Btl IV (13:14)
== END 2021-02-18 11:08 | disposition home or self-care (01) ==
PROVIDERS: PCP Family Medicine; Visit Provider Internal Medicine Medical Oncology
DX: C82.28 Follicular lymphoma grade III, unspecified, lymph nodes of multiple sites (principal); Z90.49 Acquired absence of other specified parts of digestive tract; R59.1 Generalized enlarged lymph nodes
CPT/HCPCS: 71260; 74177; 82565; 84520

== ENCOUNTER 2021-02-21 10:18 | Outpatient (CLI) | payer MEDICARE, MEDICAID, SELFPAY ==
--- NOTE | 2021-02-21 10:45 | CT_ITS ---
WS: [id number] CT NECK TECHNIQUE: Contrast-enhanced CT of the neck with coronal and sagittal reformatted images. CLINICAL INFORMATION: LYMPHOMA COMPARISON: CT neck February 12, 2020 and PET/CT February 14, 2020 DLP: 624.[address] scans at [facility] use at least one of these dose optimization techniques: automat ed exposure control; mA and/or kV adjustment per patient size (includes targeted exams where dose is matched to clinical indication); or iterative reconstruction. FINDINGS: Parotid glands are normal. Normal submandibular glands. Mastoid air cells are well aerated. Paranasal sinuses are well aerated. Mucosal thickening right sphenoid sinus. Normal parapharyngeal fat. Promin ent lymphoid tissue in the posterior nasopharynx. Diffuse cervical lymphadenopathy involving all cerv ical lymph node stations extending into the lower neck and supraclavicular regions bilaterally. This is similar in distribution to February 12, 2020 with lymph nodes overall slightly improved from previous. Largest lymph nodes measure approximately 1.7 CM. Advanced spondylitic changes cervical spine. Slight grade 1 anterolisthesis C4 on C5. Disc osteophyte complexes at C4-C5 C5-C6 and C6-C7. Slight patchy opacities in the super segment left lobe lower lob e partially visualized. CT/CT neck w con* [id number] IMPRESSION: 1. Mild to moderate diffuse cervical lymphadenopathy extending into the suprac lavicular regions bilaterally. Largest lymph nodes measure up to 1.7 cm suspici ous for recurrent lymphoma. Overall lymph nodes are slightly improved compared to February 12, 2020 but with persistent lymphadenopathy. 2. Normal salivary glands. 3. Prominent lymphoid tissue in the posterior nasopharynx. No focal lesions. R ecommend direct visualization. 4. Partially visualized infiltrate in the super segment left lower lobe.
[2021-02-21] MEDS: iohexol 300 mg/mL 100 mL Btl IV (11:17)
== END 2021-02-21 10:19 | disposition home or self-care (01) ==
LOC: RAD 10:23
PROVIDERS: PCP Family Medicine; Visit Provider Internal Medicine Medical Oncology
DX: C82.28 Follicular lymphoma grade III, unspecified, lymph nodes of multiple sites (principal)
CPT/HCPCS: 70491

== ENCOUNTER 2021-03-03 10:49 | Outpatient (CLI) | payer MEDICARE, MEDICAID, SELFPAY ==
[2021-03-03 11:29] LABS: Basophils # 0.1 10^3/uL (0.0-0.1); Basophils % 0.7 %; Eosinophils # 0.3 10^3/uL (0.0-0.8); Eosinophils % 2.6 %; Hematocrit 46.1 % (37.0-47.0); Hemoglobin 14.7 g/dL (11.5-15.3); Lymphocytes % 29.8 %; Mean Corpuscular HGB Conc 31.9 g/dL (30.0-36.0); Mean Corpuscular Hemoglobin 30.6 pg (28.0-34.0); Mean Platelet Volume 9.8 fL (7.4-10.4); Monocytes # 0.7 10^3/uL (0.2-0.9); Monocytes % 6.8 %; Neutrophils # 5.92 10^3/uL (1.8-7.7); Neutrophils % 59.6 %; Nucleated Red Blood Cells % 0 %; Platelet Count 215 10^3/cmm (130-400); Red Cell Distribution Width 12.7 % (12.1-15.1); White Blood Count 9.9 10^3/uL (4.0-10.0)
[2021-03-03 12:08] LABS: Alanine Aminotransferase 20 U/L (0-33); Albumin Level 3.5 g/dL (3.5-5.2); Alkaline Phosphatase 109 IU/L (35-105); Anion Gap 14.5 (5-19); Aspartate Amino Transferase 22 U/L (0-32); Blood Urea Nitrogen 12 mg/dL (8-23); Calcium 8.6 mg/dL (8.5-10.5); Carbon Dioxide 25 mmol/L (22-29); Chloride 102 mmol/L (98-107); Globulin 2.3 g/dL (1.3-4.6); Glucose 117 mg/dL (65-115); Lactate Dehydrogenase 172 U/L (135-214); Osmolality Calculated 285 mOsm/kg (285-295); Potassium 4.5 mmol/L (3.5-5.1); Sodium 137 mmol/L (136-145); Total Bilirubin 0.5 mg/dL (0.15-1.2); Total Protein 5.8 g/dL (6.6-8.7)
--- NOTE | 2021-03-06 14:06 | ONC FU_ITS ---
Dr. Reyna Patient Follow-Up Note Patient: Carly Marvin Unit #: [id number]: [id number] Dicatated By: Selwyn Reyna M.D.Date of Visit:Mar 03, 2021 Onc Med Follow-up/Prog Note Chief Complaint: Lymphoma. History of Present Illness: This is a 70 year-old woman with grade 3 follicular B-cell lymphoma, stage IIIA by clinical evaluation. The lymphoma was initially diagnosed by cervical lymph node biopsy in November of 2009. She had clinical stage IIIA disease with PET/CT suspicious for additional involvement in right submandibular and mesenteric lymph nodes. She was treated with 4 cycles of bendamustine/Rituxan, which she completed in March of 2010. She appeared to have a complete response by followup PET/CT. She was then given maintenance Rituxan at 3-month intervals. As of December 2011, she had completed 6 of 8 planned cycles of maintenance therapy. It was stopped at that point because she had become severely neutropenic, presumably due to Rituxan. She had complete recovery and during subsequent followup there was no evidence of recurrence/progression of the lymphoma. On her for a followup visit in June 2015 she was concerned about a possible lump on the left side of her neck. She appeared to have enlarged submandibular glands bilaterally, but I did not feel any definite lymphadenopathy. She subsequently was scheduled for restaging CT scans, which showed some mild right iliac chain adenopathy measuring in the range of 9-11 mm, felt to be nonspecific. There was no other adenopathy noted, and at that point she just remained on observation. In June 2017 she presented with new left jugulodigastric adenopathy. She was referred to Dr. George. On 08/28/2017 she underwent excisional biopsy of deep left jugulodigastric neck mass and direct laryngoscopy with biopsy of a lesion at the left base of tongue. Pathology was benign. Her other medical illnesses include hypertension, hypercholesterolemia, mitral regurgitation, obstructive sleep apnea, hypothyroidism, and depression. On 04/23/2017 she underwent extracorporeal shockwave lithotripsy to a left renal calculus. She also underwent cystoscopy with left ureteral stent placement. In February 2018 she underwent cystoscopy with laser lithotripsy and ureteral stent placement for another left ureteral stone. In October 2018 she was diagnosed with extensive deep vein thrombosis of the left leg. At that point she began on anticoagulation with apixaban. INTERIM HISTORY: In December 2019 she presented with recurrence of cervical lymphadenopathy. Her neck CT on 02/12/2020 reeported massive lymphadenopathy throughout the neck. The adenopathy was noted to extend from the supraclavicular region to the skull base. She had further evaluation with PET/CT on 02/14/2020. It showed multiple FDG positive bilateral cervical lymph nodes felt to be most consistent with recurrent follicular B-cell lymphoma. Nodes were evident in the bilateral cervical levels II through V, and small FDG positive lymph nodes were noted in the supraclavicular region bilaterally as well. An index right to a node measured 1.9 cm with SUV 16.9. Uptake at the base of tongue, lingula tonsil, and adenoid tissue was consistent either with lymphoma or reactive uptake. There were no other sites of potential involvement noted on that study. As she was not overtly symptomatic with the cervical adenopathy, she continued on observation/expectant management. Restaging CT scans of the chest, abdomen, and pelvis on 02/18/2021 showed partially visualized adenopathy in the lower neck, with the largest lymph nodes measuring up to 2.1 cm. There was no mediastinal or hilar adenopathy noted. New enlarging lymph nodes were noted in the periaortic region and left proximal common iliac chain measuring in the range of 11 to 12 mm. These had progressed compared to prior studies. A low-attenuation lesion in the pancreatic head measuring 2.2 cm showed long-term stability. Her restaging CT of the neck on 02/21/2021 showed mild to moderate diffuse cervical adenopathy extending into the supraclavicular regions bilaterally. The largest nodes measured up to 1.7 cm. Overall the adenopathy appears slightly improved compared to the January 2020 study. Prominent lymphoid tissue also was noted in the posterior nasopharynx. She is seen for a follow-up visit. She continues to have very limited activity due to her left hip/left knee pain. She spends virtually all of her time in the bed or recliner. ECOG score is 3. Her appetite has been good. She has not had fever or night sweats. She says she always feels warm. She has sinus drainage all the time. Her throat gets dry at night. Lately she has had cough at night. She is on CPAP. She has some shortness of breath. She does not complain of chest pain. She occasionally has nausea. She has acid reflux. She has normal runny stools. She has bladder leakage. She also has pain in her left shoulder and left arm. She has occasional headache. She says she gets dizzy quite often. She has no numbness/paresthesia or other focal neurologic symptoms. Medications: Acetaminophen-Codeine #3 2 Tablet (of 300-30 mg) Oral q 6 hours PRN, Aspirin 1 (81 mg) Tablet Oral daily, Baclofen 1 Tablet (of 10 mg) Oral four times a day PRN, CeleXA 1 (20 mg) Tablet Oral daily, Centrum Silver 50+Women 1 Tablet Oral daily, Dicyclomine HCl 1 Tablet (of 20 mg) Oral four times a day PRN, Eliquis 2.5 Tablet (of 5 mg) Oral b.i.d., Furosemide 1 (40 mg) Tablet Oral daily PRN, Levothyroxine Sodium 1 (100 mcg) Tablet Oral daily, Lipitor 1 (20 mg) Tablet Oral daily, Lisinopril 40 mg - Take 1 Tablet Oral daily, LORazepam 1 Tablet (of 0.5 mg) Oral PRN, Magnesium Oxide 2 (500 ) Tablet Oral daily, Meclizine HCl 1 Tablet (of 25 mg) Oral four times a day PRN, Metoprolol Succinate 1 (25 mg) Tablet SR 24 HR Oral b.i.d., Nitroglycerin 1 Tablet (of 0.4 mg) Tablet, sublingual Sublingual PRN, Ondansetron HCl 1 Tablet (of 8 mg) Oral q 8 hours PRN, Potassium Citrate 1 Tablet (of 15 meq) Oral b.i.d., Protonix 1 Tablet (of 40 mg) Tablet, enteric coated Oral b.i.d., Singulair 1 (10 mg) Tablet Oral daily PRN Allergies: No Known Allergies. Vital Signs: Performed on Mar 03, 2021 15:09 Height - 67.00 in Temperature - 98.6 F Pulse - 66 /min Respiration - 18 /min BP - 154/86 mm(hg) (HIGH) O2 Sat - 94 % (LOW) Pain - 8 Fatigue - 5 Physical Examination: Constitutional - She has limited mobility, Eyes - Sclerae nonicteric. Conjunctivae clear, ENMT - No lesions noted in the oral cavity, Hematologic/Lymphatic - There is bilateral cervical adenopathy, more prominent on the right. There is a small node palpable in the left supraclavaicular area. There is no axillary adenopathy noted, Respiratory - Lungs sound clear, Cardiovascular - Heart rhythm is regular. There is a II/ systolic murmur. There is no gallop or rub noted, Abdomen - Distended. Liver and spleen are not enlarged. There is no abdominal mass or ascites noted and there is no inguinal adenopathy, Extremities - Mild lower extremity edema, Neurologic - No focal neurologic deficits noted. Lab/Imaging: Test performed on Mar 03, 2021 11:06 LDH (Total) 172 U/L Sodium 137 mmol/L Potassium 4.5 mmol/L Chloride 102 mmol/L CO2 25 mmol/L Anion Gap 14.5 BUN 12 mg/dL Creatinine 0.5 mg/dL Cr Clearance (Est) 240.3300 mL/min Glucose 117 mg/dL Osmolality - Calculated 285 mOsm/kg Calcium 8.6 mg/dL Protein, Total 5.8 g/dL Albumin 3.5 g/dL Globulin 2.3 g/dL Bilirubin, Total 0.5 mg/dL ALT (SGPT) 20 U/L AST (SGOT) 22 U/L Alkaline Phosphatase 109 IU/L WBC 9.9 10 3/uL RBC 4.80 10 6/uL HGB 14.7 g/dL HCT 46.1 % MCV 96.0 fL MCH 30.6 pg MCHC 31.9 g/dL RDW 12.7 % Platelet Count 215 10 3/cmm MPV 9.8 fL Neutrophils 5.92 10 3/uL Lymphocytes 3.0 10 3/uL Monocytes 0.7 10 3/uL Eosinophils 0.3 10 3/uL Basophils 0.1 10 3/uL Neutrophil % 59.6 % Lymphocyte % 29.8 % Monocyte % 6.8 % Eosinophil % 2.6 % Basophils % 0.7 % NRBC % 0 % Problem List: 1. Grade 3 follicular B-cell lymphoma, stage IIIA, initially diagnosed by left cervical lymph node biopsy in November 2009. 2. In October 2018 she was found to have extensive deep vein thrombosis of the left leg. She has been on anticoagulation with apixaban. 3. Hypertension. 4. Hyperlipidemia. 5. Hypothyroidism. 6. Obstructive sleep apnea. 7. Mitral regurgitation. 8. She underwent lithotripsy/ureteral stent placement for left renal calculus in March 2017. 9. Depression. Problems Addressed with this Encounter and Plan: Patient with grade 3 follicular B-cell lymphoma, stage IIIA, initially diagnosed by left cervical lymph node biopsy in November 2009. She had a good response to treatment with bendamustine/Rituxan, completed in March of 2010, followed by an abbreviated course of maintenance Rituxan, completed in December 2011. She was then folllowed on observation/expectant management. In December 2019 she presented with obvious cervical adenopathy bilaterally. This was confirmed with subsequent neck CT and restaging PET/CT. The PET/CT, though, showed no other areas of obvious involvement with lymphoma. As she was not overtly symptomatic with the cervical adeonopathy, there appeared to be no indication for treatment. During follow-up there has been no significant progression of the lymphadenopathy. In the setting of low-grade lymphoma with nonbulky, asymptomatic adenopathy, she can continue on observation/expectant management. I will see her again in 1 year, or sooner as needed. Signed By: Selwyn Reyna M.D. <<Signature on File>>
== END 2021-03-03 10:50 | disposition home or self-care (01) ==
PROVIDERS: PCP Family Medicine; Visit Provider Internal Medicine Medical Oncology
DX: Z08 Encounter for follow-up examination after completed treatment for malignant neoplasm (principal); Z85.72 Personal history of non-Hodgkin lymphomas; Z86.718 Personal history of other venous thrombosis and embolism; Z79.01 Long term (current) use of anticoagulants; I10 Essential (primary) hypertension; E78.5 Hyperlipidemia, unspecified; E03.9 Hypothyroidism, unspecified; G47.33 Obstructive sleep apnea (adult) (pediatric); I34.0 Nonrheumatic mitral (valve) insufficiency; F32.9 Major depressive disorder, single episode, unspecified; Z87.442 Personal history of urinary calculi; Z79.899 Other long term (current) drug therapy
CPT/HCPCS: 36415; 80053; 83615; 85025; G0463

== ENCOUNTER → 2021-04-07 07:48 | Outpatient (BNVA) | payer MEDICARE, MEDICAID, SELFPAY | PROVIDERS: PCP Family Medicine; Visit Provider Anesthesiology | DX: G89.29 Other chronic pain (principal); M25.552 Pain in left hip; M25.512 Pain in left shoulder; Z79.891 Long term (current) use of opiate analgesic | CPT/HCPCS: 99214 ==

== ENCOUNTER → 2021-08-16 09:14 | Outpatient (BNVA) | payer MEDICARE, MEDICAID, SELFPAY | PROVIDERS: PCP Family Medicine; Visit Provider Anesthesiology | DX: G89.29 Other chronic pain (principal); M79.601 Pain in right arm; M79.602 Pain in left arm; M25.512 Pain in left shoulder; M25.552 Pain in left hip; Z79.891 Long term (current) use of opiate analgesic | CPT/HCPCS: 99214 ==

== ENCOUNTER 2022-04-12 11:07 | Emergency (ER) | payer MEDICARE, MEDICAID, SELFPAY ==
[2022-04-12 11:10] VITALS: BP 173/88; PULSE 104; RESP 18; TEMP 36.6; O2SAT 95
--- NOTE | 2022-04-12 11:32 | CT_ITS ---
WS: [id number] CT ABDOMEN AND PELVIS NONCONTRAST HISTORY: Abdominal pain TECHNIQUE: Imaging performed through the abdomen and pelvis. Coronal and sagittal reformats are submi tted. All CT scans at [facility] use at least one of these dose optimization techniques: auto mated exposure control; mA and/or kV adjustment per patient size (includes targeted exams where dose is matched to clinical indication); or iterative reconstruction. DLP: 1628.89 mGy.cm COMPARISON: 03/14/2018, 02/18/2021 Lower thorax: Bibasilar areas of atelectasis at the lung bases. Heart size is normal. Liver: Normal size liver. No mass or bile duct dilatation. Gallbladder: Prior cholecystectomy. Pancreas: Normal size pancreas. Again noted is the cystic mass at the pancreatic head measuring 1.9 c m. No interval change. No pancreatic duct dilatation. Spleen: Normal. Adrenal glands: Normal. No mass. Right kidney: Normal size kidney with no mass or hydronephrosis. Left kidney: Normal size kidney with no mass or hydronephrosis. Aorta: No aneurysm. No para-aortic hematoma. No free fluid, intraperitoneal air or significant lymphadenopathy. GI tract: Stomach is moderately distended with fluid. Patient is also status post gastric banding. Sm all amount of fluid extends to the duodenal C-loop. No small bowel obstruction. Prior appendectomy. V blake few diverticula in the sigmoid colon. Abdominal wall: Negative. No hernia. Pelvis: Prior hysterectomy. No adenopathy or free fluid in the pelvis. Osseous structures: Moderate degenerative disc disease and spondylitic changes throughout the lower t horacic and lumbar spine. Moderate RIGHT and moderate to severe LEFT hip joint osteoarthritis. Comple te loss of the LEFT hip joint space with hypertrophic osteophytes. CT/CT abdomen pelvis wo con [id number] IMPRESSION: 1. No acute abdominal or pelvic abnormalities are identified. 2. No recurrent lymphadenopathy. 3. Palpable area along the LEFT abdominal wall is probably associated with the lap band reservoir. The entire abdominal wall is not included in the gantry du e to patient's body habitus. 4. Long-term stability cystic mass in the pancreatic head. 5. Prior appendectomy and cholecystectomy and hysterectomy. 6. Moderate fluid distention of the stomach. 7. Moderate RIGHT and severe LEFT hip joint osteoarthritis.
[2022-04-12 12:13] LABS: Basophils % 0.3 %; Eosinophils % 0.1 %; Hematocrit 48.1 % (37.0-47.0); Hemoglobin 15.6 g/dL (11.5-15.3); Lymphocytes # 1.7 10^3/uL (0.8-4.8); Lymphocytes % 11.2 %; Mean Corpuscular HGB Conc 32.4 g/dL (30.0-36.0); Mean Corpuscular Hemoglobin 31.1 pg (28.0-34.0); Mean Corpuscular Volume 95.8 fl (81-99); Mean Platelet Volume 9.9 fL (7.4-10.4); Monocytes # 0.5 10^3/uL (0.2-0.9); Monocytes % 3.3 %; Neutrophils # 12.67 10^3/uL (1.8-7.7); Neutrophils % 84.5 %; Nucleated Red Blood Cells % 0 %; Platelet Count 243 10^3/cmm (130-400); Red Blood Count 5.02 10^6/uL (4.1-5.3); Red Cell Distribution Width 12.7 % (12.1-15.1)
[2022-04-12 12:30] LABS: Anion Gap 17.3 (5-19); Blood Urea Nitrogen 15 mg/dL (8-23); Calcium 9.4 mg/dL (8.5-10.5); Carbon Dioxide 26 mmol/L (22-29); Chloride 99 mmol/L (98-107); Glucose 205 mg/dL (65-115); Osmolality Calculated 293 mOsm/kg (285-295); Potassium 4.3 mmol/L (3.5-5.1); Sodium 138 mmol/L (136-145)
--- NOTE | 2022-04-12 12:39 | W.ED.ABDPA2 ---
HPI - Abdominal Pain General: Chief Complaint: Abdominal Pain Stated Complaint: Abdominal pain Time Seen by Provider: 04/12/22 11:22 Source: patient Mode of arrival: ambulatory History of Present Illness: 71-year-old female presents emergency room with complaints of abdominal pain. States she has had this pain the last couple days she has noted she has been constipated in the time she denies any medic easy melena hematemesis cough cramps no dysuria urgency or frequency. She is morbidly obese is limited in mobility. She had previously been having problems with loose stools and diarrhea she took antidiarrhea medications [id number] and now is having problems with constipation and cramping. Vomiting x1 no fever. MD elicited complaint: abdominal pain Pertinent past history: constipation Onset (ago): day(s) Pain Consistency: intermittent Location: Epigastric Severity: mild Quality: cramping Radiation: none Exacerbating factors: nothing Relieving factors: nothing Associated Symptoms: Reports bloating, change in bowel habits, change in stool character and constipation; Denies anorexia, belching, chills, coffee ground emesis, GI cramping, diarrhea, dyspepsia, dysuria, excessive flatus, fever(s), heartburn, hematochezia, hematuria, hematemesis, fecal incontinence, loose stools, melena, nausea, poor appetite, syncope and vomiting Review of Systems Const: Denies: fever(s) or chills ENMT: Denies: throat pain, ear or mastoid pain, nasal discharge or nasal congestion Card: Denies: syncope Resp: Denies: dyspnea, productive cough or non-productive cough GI: Reports: constipation, bloating, change in bowel habits and change in stool character; Denies: nausea, vomiting, hematemesis, coffee ground emesis, heartburn, diarrhea, GI cramping, belching, excessive flatus, fecal incontinence, hematochezia or melena : Denies: dysuria or hematuria Skin/Breast: Denies: rash or pruritus PFSH ED PFSH: Medical History Diabetes mellitus Morbid obesity Social History Smoking and tobacco status: never smoked Alcohol intake: never Physical Exam Const: COMMON NORMALS: no acute distress GENERAL APPEARANCE: cooperative and comfortable ORIENTATION/CONSCIOUSNESS: Yes awake, Yes oriented to person, Yes oriented to place and Yes oriented to time HENMT: COMMON NORMALS: normocephalic, atraumatic and hearing grossly normal bilaterally HEAD & SCALP: normocephalic and atraumatic Resp: COMMON NORMALS: normal respiratory effort, No retractions, No use of accessory muscles and clear to auscultation bilaterally AUSCULTATION: clear to auscultation bilaterally Cardio: COMMON NORMALS: regular rate, regular rhythm and No murmurs present (Cardio) RATE: regular rate RHYTHM: regular rhythm GI: COMMON NORMALS: No hepatosplenomegaly present AUSCULTATION: Yes normoactive bowel sounds PALPATION: Yes Tenderness to palpation present (GI) Details: RLQ, No Guarding due to palpation present (GI) and Yes No hepatosplenomegaly present Extremity: COMMON NORMALS: normal to inspection, capillary refill normal, no clubbing, cyanosis or edema, no calf tenderness and no pedal edema Neuro: SENSORIUM/ORIENTATION: Yes oriented to person, Yes oriented to place and Yes oriented to time Skin: COMMON NORMALS: no rashes or lesions noted GENERAL SKIN EXAM: no rashes or lesions noted Course Vital Signs: Vital signs: Vital Signs Temperature 97.9 F 04/12/22 11:10 Pulse Rate 94 04/12/22 13:30 Respiratory Rate 18 04/12/22 11:10 Blood Pressure 182/89 04/12/22 13:30 Pulse Oximetry 93 04/12/22 13:30 Oxygen Delivery Me thod 04/12/22 13:30 MDM - Abdominal Pain Medical Decision Making CT shows normal. Hemoglobin stable. Continue pantoprazole twice daily follow-up as needed. Medical Records I reviewed the patient's medical records. Lab Data I reviewed the patient's lab results. : 04/12/22 12:00 04/12/22 12:00 Labs/Radiology: Radiology Impressions Abdomen/Pelvis CT 04/12/22 11:32 IMPRESSION: 1. No acute abdominal or pelvic abnormalities are identified. 2. No recurrent lymphadenopathy. 3. Palpable area along the LEFT abdominal wall is probably associated with the lap band reservoir. The entire abdominal wall is not included in the gantry due to patient's body habitus. 4. Long-term stability cystic mass in the pancreatic head. 5. Prior appendectomy and cholecystectomy and hysterectomy. 6. Moderate fluid distention of the stomach. 7. Moderate RIGHT and severe LEFT hip joint osteoarthritis. Laboratory Results WBC 15.0 10^3/uL (4.0-10.0) H 04/12/22 12:00 RBC 5.02 10^6/uL (4.1-5.3) 04/12/22 12:00 Hgb 15.6 g/dL (11.5-15.3) H 04/12/22 12:00 Hct 48.1 % (37.0-47.0) H 04/12/22 12:00 MCV 95.8 fl (81-99) 04/12/22 12:00 MCH 31.1 pg (28.0-34.0) 04/12/22 12:00 MCHC 32.4 g/dL (30.0-36.0) 04/12/22 12:00 RDW 12.7 % (12.1-15.1) 04/12/22 12:00 Plt Count 243 10^3/cmm (130-400) 04/12/22 12:00 MPV 9.9 fL (7.4-10.4) 04/12/22 12:00 Neut % (Auto) 84.5 % 04/12/22 12:00 Lymph % (Auto) 11.2 % 04/12/22 12:00 Hooker % (Auto) 3.3 % 04/12/22 12:00 Eos % (Auto) 0.1 % 04/12/22 12:00 Baso % (Auto) 0.3 % 04/12/22 12:00 Neut # (Auto) 12.67 10^3/uL (1.8-7.7) H 04/12/22 12:00 Lymph # (Auto) 1.7 10^3/uL (0.8-4.8) 04/12/22 12:00 Hooker # (Auto) 0.5 10^3/uL (0.2-0.9) 04/12/22 12:00 Eos # (Auto) 0.0 10^3/uL (0.0-0.8) 04/12/22 12:00 Baso # (Auto) 0.0 10^3/uL (0.0-0.1) 04/12/22 12:00 Nucleated RBC % (auto) 0 % 04/12/22 12:00 Nucleated RBCs # 0.0 /100WBC 04/12/22 12:00 Sodium 138 mmol/L (136-145) 04/12/22 12:00 Potassium 4.3 mmol/L (3.5-5.1) 04/12/22 12:00 Chloride 99 mmol/L (98-107) 04/12/22 12:00 Carbon Dioxide 26 mmol/L (22-29) 04/12/22 12:00 Anion Gap 17.3 (5-19) 04/12/22 12:00 BUN 15 mg/dL (8-23) 04/12/22 12:00 Creatinine 0.6 mg/dL (0.5-0.9) 04/12/22 12:00 GFR Calculation Not Reportable 04/12/22 12:00 Glucose 205 mg/dL (65-115) H 04/12/22 12:00 Calculated Osmolality 293 mOsm/kg (285-295) 04/12/22 12:00 Calcium 9.4 mg/dL (8.5-10.5) 04/12/22 12:00 Urine Color Dark yellow (Yellow) 04/12/22 12:30 Urine Appearance Clear (CLEAR) 04/12/22 12:30 Urine pH 6 (5-7) 04/12/22 12:30 Ur Specific [place] 1.020 (1.005-1.030) 04/12/22 12:30 Urine Protein 3+ (Negative) H 04/12/22 12:30 Urine Glucose (UA) Norm (Normal) 04/12/22 12:30 Urine Ketones 1+ (Negative) H 04/12/22 12:30 Urine Blood Trace (Negative) H 04/12/22 12:30 Urine Nitrate Negative (Negative) 04/12/22 12:30 Urine Bilirubin Neg (Negative) 04/12/22 12:30 Urine Urobilinogen Norm mg/dL (Negative) 04/12/22 12:30 Ur Leukocyte Esterase Negative (Negative) 04/12/22 12:30 Urine RBC 0-4 /hpf (0-2) H 04/12/22 12:30 Urine WBC 0-4 /hpf (0-5) H 04/12/22 12:30 Ur Squamous Epith Cells 0-4 /hpf (0-5) H 04/12/22 12:30 Amorphous Sediment Not Reportable 04/12/22 12:30 Urine Bacteria 3+ /hpf (NONE) H 04/12/22 12:30 Hyaline Casts 0-4 /lpf H 04/12/22 12:30 Fine Granular Casts 0-4 /lpf H 04/12/22 12:30 Coarse Granular Casts 0-4 /lpf H 04/12/22 12:30 Discharge Plan Discharge Patient Disposition: Home Clinical Impression: Abdominal pain, Morbid obesity, Nausea & vomiting Prescriptions: New ondansetron HCl 4 mg tablet 4 mg PO Q6H PRN (Reason: nausea and vomiting) Qty: 20 0RF No Action furosemide 40 mg tablet 40 mg PO DAILY atorvastatin 20 mg tablet 20 mg PO BEDTIME Aspir-81 81 mg Tablet,Delayed Release (Dr/Ec) 81 mg PO DAILY levothyroxine 100 mcg tablet 100 mcg PO DAILY alprazolam 0.5 mg tablet 0.5 mg PO BID PRN (Reason: Anxiety) citalopram 20 mg tablet 20 mg PO DAILY baclofen 10 mg tablet 10 mg PO QID PRN (Reason: Muscle Spasm) pantoprazole 40 mg tablet,delayed release (DR/EC) 40 mg PO BID acetaminophen-codeine 300-60 mg tablet 1 tab PO Q6H lisinopril 40 mg tablet 40 mg PO DAILY fluticasone propionate 50 mcg/actuation spray,suspension 1 spray INTRANASAL DAILY PRN (Reason: Allergy Symptoms) potassium citrate 15 mEq tablet extended release 15 meq PO BID Eliquis 2.5 mg tablet 2.5 mg PO BID metoprolol tartrate 25 mg tablet 25 mg PO BID Discharge Orders: Discharge ED (Routine); Ordered 04/12/22 Ordered By: Tawanda De Los Santos Discharge Diet: Clear Liquid Discharge Activity: Increase activity as tolerated Patient Instructions: Abdominal Pain (ED), Opioid Safety, Pain Management Activity Restrictions/Additional Instructions: Continue Protonix twice daily use the ondansetron as needed COVID liquid diet for 24 to 48 hours and advance as tolerated. Coding Level of Care Code ED Signals Collector/Analyst for Sharon Chinchilla
[2022-04-12] MEDS: ondansetron 2 mg/ML SDV 2 mL 4 MG IVP (12:55)
[2022-04-12 12:59] VITALS: BP 109/66; PULSE 89; O2SAT 94
[2022-04-12 13:00] VITALS: BP 109/66; PULSE 94; O2SAT 95
[2022-04-12 13:11] LABS: Add Urine Microscopic? YES; Bilirubin Urine Neg (Negative); Blood Urine Trace (Negative); Glucose Urine UA Norm (Normal); Ketones Urine 1+ (Negative); Leukocyte Esterase Urine Negative (Negative); Nitrate Urine Negative (Negative); Protein Urine 3+ (Negative); Urine Appearance Clear (CLEAR); Urine Color Dark Yellow (Yellow); Urobilinogen Urine Norm (Negative); pH Urine 6 (5-7)
[2022-04-12 13:12] LABS: Add Urine Culture? Yes; Bacteria Urine 3+ /hpf; Coarse Granular Casts Urine 0-4 /lpf; Fine Granular Casts Urine 0-4 /lpf; Hyaline Casts Urine 0-4 /lpf; RBC Urine 0-4 /hpf (0-2); Squamous Epithelial Cell Urine 0-4 /hpf (0-5); WBC Urine 0-4 /hpf (0-5)
[2022-04-12 13:30] VITALS: BP 182/89; PULSE 94; O2SAT 93
== END 2022-04-12 18:01 | disposition home or self-care (01) ==
PROVIDERS: Emergency Provider Family Medicine
DX: R10.13 Epigastric pain (principal); R11.2 Nausea with vomiting, unspecified; E11.9 Type 2 diabetes mellitus without complications; E66.01 Morbid (severe) obesity due to excess calories; Z79.82 Long term (current) use of aspirin; Z79.01 Long term (current) use of anticoagulants
CPT/HCPCS: 36415; 74176; 80048; 81001; 85025; 87086; 96374; 99285; J2405

== ENCOUNTER 2022-04-14 12:29 | Emergency (ER) | payer MEDICARE, MEDICAID, SELFPAY ==
--- NOTE | 2022-04-14 12:33 | W.ED.GENADLT ---
HPI - General Adult General: Chief complaint: Abdominal Pain Stated complaint: ABDOMINAL PAIN FOR 1 WEEK Time Seen by Provider: 04/14/22 12:31 History of Present Illness: Patient is a 71-year-old female history of prior cholecystectomy, gastric band presents emergency room with 1 week worsening abdominal fullness, nausea/vomiting, decreased p.o. intake. Patient tells me since a week ago she has had constant abdominal pain in the mid epigastric periumbilical area. Patient has had decreased p.o. intake and decreased appetite. Return patient sees food, patient reports nausea vomiting. Patient denies diarrhea melena/hematochezia Patient has no complaints. She reports that there is abdominal fullness in her abdomen that is new since a week ago. Patient has any cough, runny nose sore throat, chest pain, exertional chest pain, pleuritic chest pain, shortness of breath, fever, chills, nasal congestion, or cough. Onset:1 week ago Duration:1 week Location:home Severity:moderate Associated symptoms: Reports nausea and vomiting; Deny chest pain, dyspnea, rash or palpitations Review of Systems Const: Denies: fever(s) or chills Eyes: Denies: change in vision ENMT: Denies: mouth pain Card: Denies: chest pain or palpitations Resp: Denies: dyspnea or non-productive cough GI: Reports: abdominal pain (+abdominal fullness), nausea and vomiting; Denies: diarrhea : Denies: dysuria Musc: Denies: extremity pain Skin/Breast: Denies: rash or new lesions Neuro: Denies: weakness in extremities Psych: Reports: other (Normal mood) Godwin/Lymph: Denies: easy bruising PFS ED PFSH: Medical History Benign essential HTN Bilateral arm pain Chronic left shoulder pain Dyslipidemia (high LDL; low HDL) Encounter for long-term opiate analgesic use History of DVT (deep vein thrombosis) History of rectal injury rectal tear surgery Left hip pain Non-Hodgkin lymphoma Obstructive sleep apnea Opioid contract exists Ventricular arrhythmia Surgical History History of ureter stent Hx of cholecystectomy Hx of dilation and curettage Hx of hysterectomy Hx of laparoscopic gastric banding Hx of tubal ligation Family History Mother Diabetes Hypertension Father Cancer lung Social History Second hand smoke exposure: Yes Alcohol intake: never History of recent travel: No Physical Exam Const: COMMON NORMALS: alert HENMT: COMMON NORMALS: atraumatic HEAD & SCALP: atraumatic MOUTH: moist mucous membranes not abnormal Eye: COMMON NORMALS: EOMs intact bilaterally and conjunctivae normal CONJUNCTIVA: Yes conjunctivae normal Neck/C-Spine: COMMON NORMALS: full ROM and supple Resp: COMMON NORMALS: normal respiratory effort and clear to auscultation bilaterally AUSCULTATION: clear to auscultation bilaterally Cardio: COMMON NORMALS: regular rate RATE: regular rate GI: COMMON NORMALS: Soft to palpation and non-tender PALPATION: Yes Soft to palpation OTHER: + Abdominal distention, moderate midepigastric, periumbilical tenderness palpation. NO guarding rebound, guarding, rigidity. No CVA tenderness to percussion. Neg Nichols/Neg McBurney's point tenderness, no suprabupic tenderness to palpation. Extremity: COMMON NORMALS: full ROM Neuro: SENSORIUM/ORIENTATION: Yes alert MOTOR EXAM: No Abnormal motor strength present and Other motor observations present (no focal motor deficits) Psych: COMMON NORMALS: speech normal SPEECH: Yes normal speech MOOD & AFFECT: Yes euthymic mood Course Vital Signs: Vital signs: Vital Signs Temperature 97 F L 04/14/22 12:35 Pulse Rate 104 H 04/14/22 15:45 Respiratory Rate 18 04/14/22 15:45 Blood Pressure 158/89 04/14/22 15:45 Pulse Oximetry 91 04/14/22 15:45 Oxygen Delivery Me thod 04/14/22 15:45 [facility] - General Adult Medical Decision Making Patient is a 71-year-old female history of prior cholecystectomy, gastric band presents emergency room with 1 week worsening abdominal fullness, nausea/vomiting, decreased p.o. intake. On exam, patient midepigastric periumbilical fullness and moderate tenderness palpation. No guarding or rebound tenderness. Patient is hemodynamically stable. Patient does not have white count 23.8. Patient is hemoconcentrated 16.4. CT abdomen pelvis showed small bowel obstruction with perforation. Pancreatic mass noted on CT scan. Finding was discussed with Dr. Berman who recommended the OR and surgery. Patient received Zosyn. N.p.o. currently. Case discussed with Dr. Montaño for follow-up foot troponin elevation. NG tube placed/ KUB ordered. Disposition: OR At 3:[address] Berman spoke with the patient and family. Dr. Berman recommended transfer given complexity of case. I discussed the fact the patient is on Eliquis with Dr. Ontiveros who recommended no reversal at this time. Dr. Ontiveros spoke with Dr. Morelos. Disposition: Transfer to [facility] Lab Data : 04/14/22 13:33 04/14/22 13:00 Radiology Impressions Abdomen/Pelvis CT 04/14/22 12:52 IMPRESSION: 1. Imaging findings of small-bowel obstruction with transition point in the lower abdomen. 2. Small amount of free intraperitoneal air in the left upper quadrant, consistent with viscus perforation. 3. Ill-defined soft tissue lesion in the pancreatic head, concerning for malignancy. Unchanged cystic lesion in the uncinate process. 4. Mild pulmonary edema with small bilateral pleural effusions. ADDENDUM: 04/14/22 1521 THIS REPORT CONTAINS FINDINGS THAT MAY BE CRITICAL TO PATIENT CARE. The findings were verbally communicated via telephone conference with BLANCO SCANLON at 3:20 PM CDT on 04/14/2022. The findings were acknowledged and understood. KUB X-Ray 04/14/22 15:29 Impression: 1. Nasogastric tube not in the stomach. 2. Dilated stomach and moderately dilated small bowel. Laboratory Results WBC 23.8 10^3/uL (4.0-10.0) H 04/14/22 13:33 RBC 5.35 10^6/uL (4.1-5.3) H 04/14/22 13:33 Hgb 16.4 g/dL (11.5-15.3) H 04/14/22 13:33 Hct 50.6 % (37.0-47.0) H 04/14/22 13:33 MCV 94.6 fl (81-99) 04/14/22 13:33 MCH 30.7 pg (28.0-34.0) 04/14/22 13:33 MCHC 32.4 g/dL (30.0-36.0) 04/14/22 13:33 RDW 13.1 % (12.1-15.1) 04/14/22 13:33 Plt Count 331 10^3/cmm (130-400) 04/14/22 13:33 MPV 9.9 fL (7.4-10.4) 04/14/22 13:33 Neut % (Auto) 85.4 % 04/14/22 13:33 Lymph % (Auto) 7.8 % 04/14/22 13:33 Andrews % (Auto) 6.0 % 04/14/22 13:33 Eos % (Auto) 0.1 % 04/14/22 13:33 Baso % (Auto) 0.1 % 04/14/22 13:33 Neut # (Auto) 20.26 10^3/uL (1.8-7.7) H 04/14/22 13:33 Lymph # (Auto) 1.9 10^3/uL (0.8-4.8) 04/14/22 13:33 Andrews # (Auto) 1.4 10^3/uL (0.2-0.9) H 04/14/22 13:33 Eos # (Auto) 0.0 10^3/uL (0.0-0.8) 04/14/22 13:33 Baso # (Auto) 0.0 10^3/uL (0.0-0.1) 04/14/22 13:33 Nucleated RBC % (auto) 0 % 04/14/22 13:33 Nucleated RBCs # 0.0 /100WBC 04/14/22 13:33 Sodium 135 mmol/L (136-145) L 04/14/22 13:00 Potassium 3.9 mmol/L (3.5-5.1) 04/14/22 13:00 Chloride 96 mmol/L (98-107) L 04/14/22 13:00 Carbon Dioxide 21 mmol/L (22-29) L 04/14/22 13:00 Anion Gap 21.9 (5-19) H 04/14/22 13:00 BUN 16 mg/dL (8-23) 04/14/22 13:00 Creatinine 0.5 mg/dL (0.5-0.9) 04/14/22 13:00 GFR Calculation Not Reportable 04/14/22 13:00 Glucose 286 mg/dL (65-115) H 04/14/22 13:00 Calculated Osmolality 292 mOsm/kg (285-295) 04/14/22 13:00 Lactate 3.4 mmol/L (0.5-2.2) H 04/14/22 13:33 Calcium 9.4 mg/dL (8.5-10.5) 04/14/22 13:00 Total Bilirubin 1.0 mg/dL (0.15-1.2) 04/14/22 13:00 AST 19 U/L (0-32) 04/14/22 13:00 ALT 17 U/L (0-33) 04/14/22 13:00 Alkaline Phosphatase 130 U/L (35-105) H 04/14/22 13:00 Troponin T Baseline 123 ng/L (0-10) H* 04/14/22 13:19 Total Protein 6.7 g/dL (6.6-8.7) 04/14/22 13:00 Albumin 3.8 g/dL (3.5-5.2) 04/14/22 13:00 Globulin 2.9 g/dL (1.3-4.6) 04/14/22 13:00 Lipase 74 U/L (13-60) H 04/14/22 13:00 Urine Color Leonor (Yellow) 04/14/22 15:07 Urine Appearance Clear (CLEAR) 04/14/22 15:07 Urine pH 5 (5-7) 04/14/22 15:07 Ur Specific [place] 1.020 (1.005-1.030) 04/14/22 15:07 Urine Protein 3+ (Negative) H 04/14/22 15:07 Urine Glucose (UA) 2+ (Normal) H 04/14/22 15:07 Urine Ketones 2+ (Negative) H 04/14/22 15:07 Urine Blood 2+ (Negative) H 04/14/22 15:07 Urine Nitrate Negative (Negative) 04/14/22 15:07 Urine Bilirubin Neg (Negative) 04/14/22 15:07 Urine Urobilinogen Neg mg/dL (Negative) 04/14/22 15:07 Ur Leukocyte Esterase Negative (Negative) 04/14/22 15:07 Urine RBC 0-4 /hpf (0-2) H 04/14/22 15:07 Urine WBC None /hpf (0-5) 04/14/22 15:07 Ur Squamous Epith Cells 0-4 /hpf (0-5) H 04/14/22 15:07 Amorphous Sediment Not Reportable 04/14/22 15:07 Urine Bacteria 2+ /hpf (NONE) H 04/14/22 15:07 Urine Mucus 3+ /hpf 04/14/22 15:07 Imaging Data Other Imaging: Radiologist's impression: [address] [id number] [address] Scan Report Signed with Addenda Patient: Carly Marvin Unit #: [id number] : 1950 Age/Sex: 71 / F ADM Date: 04/14/22 Loc: ER Room/Bed: Attending Dr: Ordering Provider/Ordering MD: Blanco Scanlon MD Date of Service: 04/14/22 Procedure(s): CT abdomen pelvis w con* [id number] Accession Number(s): [id number] Report Number: [id number]/CT abdomen pelvis w con* [id number] THIS REPORT CONTAINS FINDINGS THAT MAY BE CRITICAL TO PATIENT CARE. The findings were verbally communicated via telephone conference with BLANCO SCANLON at 3:20 PM CDT on 04/14/2022. The findings were acknowledged and understood. ? Addendum Dictated By: ?Babatunde Bradshaw Addendum Signed By: ?Babatunde Bradshaw Signed Date/Time: 04/14/22 1521 Addendum Cosigned By: ? PROCEDURE INFORMATION: Exam: CT Abdomen And Pelvis With Contrast Exam date and time: 04/14/2022 2:22 PM Age: 71 years old Clinical indication: Generalized; Prior surgery; Surgery type: Lap band, gb, appy, hyst; Patient HX: Abdominal pain, nausea, abdominal firmness x1 week small bm; Additional info: Abd pain TECHNIQUE: Imaging protocol: Computed tomography of the abdomen and pelvis with contrast. Radiation optimization: All CT scans at this facility use at least one of these dose optimization techniques: automated exposure control; mA and/or kV adjustment per patient size (includes targeted exams where dose is matched to clinical indication); or iterative reconstruction. Contrast material: OMNI 350; Contrast volume: 80 ml; Contrast route: INTRAVENOUS (IV);? COMPARISON: CT chest abd pel w con* 02/18/2021 1:11 PM RADIATION DOSE METRICS: Total DLP (mGy-cm): 1339.22 FINDINGS: Lungs: There is slight mosaic pattern of attenuation of the lungs, in association with mild paraseptal thickening and small bilateral pleural effusions, consistent with mild pulmonary edema. Bibasilar compressive atelectasis noted. No consolidation. Heart: Mildly enlarged heart. Coronary atherosclerotic calcifications seen. No pericardial effusion. Liver: Normal. No mass. Gallbladder and bile ducts: The gallbladder has been surgically removed. Pancreas: There is ill-defined soft tissue of mild increased enhancement in the pancreatic head, measuring approximately 4.8 x 2.6 x 3.3 cm, concerning for mass lesion. Unchanged 2.4 cm cystic lesion in the uncinate process. No pancreatic ductal dilatation seen. No associated inflammatory changes or discrete peripancreatic fluid collection identified. Spleen: Normal. No splenomegaly. Adrenal glands: Normal. No mass. Kidneys and ureters: Normal. No hydronephrosis. Stomach and bowel: There is marked dilatation of the gastric cavity and multiple loops of small bowel in the right hemiabdomen, in association with scattered air-fluid levels and transition point in the lower abdomen, consistent with bowel obstruction. There is a small amount of free air around the gastric body. There is a large bubble of air adjacent to the ligament of Treitz, which may represent area of bowel perforation. A gastric band is in place. There is diverticulosis without evidence of diverticulitis. No discrete fluid collection seen. Appendix: There has been an appendectomy. Intraperitoneal space: See Stomach and bowel finding. Vasculature: Mild diffuse atherosclerotic disease is present. Lymph nodes: Unremarkable. No enlarged lymph nodes. Urinary bladder: Unremarkable as visualized. Reproductive: The uterus is surgically absent. Bones/joints: Degenerative changes of the spine seen. Moderate to severe degenerative changes of the left hip joint noted. Soft tissues: Unremarkable. CT/CT abdomen pelvis w con* [id number] IMPRESSION: 1. Imaging findings of small-bowel obstruction with transition point in the lower abdomen. 2. Small amount of free intraperitoneal air in the left upper quadrant, consistent with viscus perforation. 3. Ill-defined soft tissue lesion in the pancreatic head, concerning for malignancy. Unchanged cystic lesion in the uncinate process. 4. Mild pulmonary edema with small bilateral pleural effusions. ? 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
[2022-04-14 12:35] VITALS: BP 160/89; PULSE 116; RESP 18; TEMP 36.1; O2SAT 93; BMI 56.5
--- NOTE | 2022-04-14 12:52 | CTR_ITS ---
PROCEDURE INFORMATION: Exam: CT Abdomen And Pelvis With Contrast Exam date and time: 04/14/2022 2:22 PM Age: 71 years old Clinical indication: Generalized; Prior surgery; Surgery type: Lap band, gb, appy, hyst; Patient HX: Abdominal pain, nausea, abdominal firmness x1 week small bm; Additional info: Abd pain TECHNIQUE: Imaging protocol: Computed tomography of the abdomen and pelvis with contrast. Radiation optimization: All CT scans at this facility use at least one of these dose optimization techniques: automated exposure control; mA and/or kV adjustment per patient size (includes targeted exams where dose is matched to clinical indication); or iterative reconstruction. Contrast material: OMNI 350; Contrast volume: 80 ml; Contrast route: INTRAVENOUS (IV); COMPARISON: CT chest abd pel w con* 02/18/2021 1:11 PM RADIATION DOSE METRICS: Total DLP (mGy-cm): 1339.22 FINDINGS: Lungs: There is slight mosaic pattern of attenuation of the lungs, in association with mild paraseptal thickening and small bilateral pleural effusions, consistent with mild pulmonary edema. Bibasilar compressive atelectasis noted. No consolidation. Heart: Mildly enlarged heart. Coronary atherosclerotic calcifications seen. No pericardial effusion. Liver: Normal. No mass. Gallbladder and bile ducts: The gallbladder has been surgically removed. Pancreas: There is ill-defined soft tissue of mild increased enhancement in the pancreatic head, measuring approximately 4.8 x 2.6 x 3.3 cm, concerning for mass lesion. Unchanged 2.4 cm cystic lesion in the uncinate process. No pancreatic ductal dilatation seen. No associated inflammatory changes or discrete peripancreatic fluid collection identified. Spleen: Normal. No splenomegaly. Adrenal glands: Normal. No mass. Kidneys and ureters: Normal. No hydronephrosis. Stomach and bowel: There is marked dilatation of the gastric cavity and multiple loops of small bowel in the right hemiabdomen, in association with scattered air-fluid levels and transition point in the lower abdomen, consistent with bowel obstruction. There is a small amount of free air around the gastric body. There is a large bubble of air adjacent to the ligament of Treitz, which may represent area of bowel perforation. A gastric band is in place. There is diverticulosis without evidence of diverticulitis. No discrete fluid collection seen. Appendix: There has been an appendectomy. Intraperitoneal space: See Stomach and bowel finding. Vasculature: Mild diffuse atherosclerotic disease is present. Lymph nodes: Unremarkable. No enlarged lymph nodes. Urinary bladder: Unremarkable as visualized. Reproductive: The uterus is surgically absent. Bones/joints: Degenerative changes of the spine seen. Moderate to severe degenerative changes of the left hip joint noted. Soft tissues: Unremarkable. CT/CT abdomen pelvis w con* [id number] IMPRESSION: 1. Imaging findings of small-bowel obstruction with transition point in the lower abdomen. 2. Small amount of free intraperitoneal air in the left upper quadrant, consistent with viscus perforation. 3. Ill-defined soft tissue lesion in the pancreatic head, concerning for malignancy. Unchanged cystic lesion in the uncinate process. 4. Mild pulmonary edema with small bilateral pleural effusions.
[2022-04-14] MEDS: sodium chloride 0.9% 1,000 ML 999 ML IV ×2 (13:37→18:05)
[2022-04-14] MEDS: famotidine 20 mg/2 mL INJ IVP (13:37)
[2022-04-14 13:39] LABS: Basophils % 0.1 %; Eosinophils % 0.1 %; Hematocrit 50.6 % (37.0-47.0); Hemoglobin 16.4 g/dL (11.5-15.3); Lymphocytes # 1.9 10^3/uL (0.8-4.8); Lymphocytes % 7.8 %; Mean Corpuscular HGB Conc 32.4 g/dL (30.0-36.0); Mean Corpuscular Hemoglobin 30.7 pg (28.0-34.0); Mean Corpuscular Volume 94.6 fl (81-99); Mean Platelet Volume 9.9 fL (7.4-10.4); Monocytes # 1.4 10^3/uL (0.2-0.9); Neutrophils # 20.26 10^3/uL (1.8-7.7); Neutrophils % 85.4 %; Nucleated Red Blood Cells % 0 %; Platelet Count 331 10^3/cmm (130-400); Red Blood Count 5.35 10^6/uL (4.1-5.3); Red Cell Distribution Width 13.1 % (12.1-15.1); White Blood Count 23.8 10^3/uL (4.0-10.0)
--- NOTE | 2022-04-14 13:40 | ECG_ITS ---
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 Measurements Intervals [place] Rate: 103 P: 56 WV: 173 QRS: -25 QRSD: 165 T: 148 QT: 399 QTc: 524 Interpretive Statements SINUS TACHYCARDIA LEFT BUNDLE BRANCH BLOCK [120+ ms QRS DURATION, 80+ ms Q/S IN V1/V2, 85+ ms R IN I/aVL/V5/V6] Compared to ECG 03/22/2018 09:24:12 Left bundle-branch block now present Sinus bradycardia no longer present Myocardial infarct finding no longer present Electronically Signed On 04-14-2022 13:44:33 CDT by Mahi Crandall M.D. [id number]
[2022-04-14 13:44] VITALS: BP 190/96; PULSE 105; RESP 19; O2SAT 95
[2022-04-14 13:50] LABS: Troponin(5th) Baseline 123 ng/L (0-10)
[2022-04-14 13:51] LABS: Alanine Aminotransferase 17 U/L (0-33); Albumin Level 3.8 g/dL (3.5-5.2); Alkaline Phosphatase 130 U/L (35-105); Blood Urea Nitrogen 16 mg/dL (8-23); Calcium 9.4 mg/dL (8.5-10.5); Carbon Dioxide 21 mmol/L (22-29); Chloride 96 mmol/L (98-107); Globulin 2.9 g/dL (1.3-4.6); Glucose 286 mg/dL (65-115); Lipase 74 U/L (13-60); Osmolality Calculated 292 mOsm/kg (285-295); Sodium 135 mmol/L (136-145); Total Protein 6.7 g/dL (6.6-8.7)
[2022-04-14 13:52] LABS: Anion Gap 21.9 (5-19); Aspartate Amino Transferase 19 U/L (0-32); Potassium 3.9 mmol/L (3.5-5.1)
[2022-04-14 13:55] LABS: Lactate (Lactic Acid level) 3.4 mmol/L (0.5-2.2)
[2022-04-14] MEDS: piperacillin-tazobactam 4.5 GM in sodium chloride 0.9% (plus) 50 ML IV (14:28)
[2022-04-14] MEDS: aspirin 325 mg Tablet PO (14:28)
[2022-04-14] MEDS: iohexol 350 mg/mL 100 mL Btl IV (14:38)
--- NOTE | 2022-04-14 15:29 | XR_ITS ---
WS: [id number] KUB, AP view, 04/14/2022 Clinical Data: confirm ng tube Comparison: KUB, 03/18/2018. Findings: The nasogastric tube is not imaged. There is a large amount of air probably in the stomach. There are opacifications overlying both kidneys which may represent intravenous contrast. There is a gastric band device on the left side of the abdomen. Monitor leads are on the upper abdomen. There is contrast material in the bladder. There are moderately dilated small bowel loops. XR/XR KUB portable [id number] Impression: 1. Nasogastric tube not in the stomach. 2. Dilated stomach and moderately dilated small bowel.
[2022-04-14 15:43] LABS: Add Urine Microscopic? YES; Bilirubin Urine Neg (Negative); Blood Urine 2+ (Negative); Glucose Urine UA 2+ (Normal); Ketones Urine 2+ (Negative); Leukocyte Esterase Urine Negative (Negative); Nitrate Urine Negative (Negative); Protein Urine 3+ (Negative); Urine Appearance Clear (CLEAR); Urine Color Amber (Yellow); Urobilinogen Urine Neg (Negative); pH Urine 5 (5-7)
[2022-04-14 15:45] VITALS: BP 158/89; PULSE 104; RESP 18; O2SAT 91
[2022-04-14 16:00] VITALS: BP 158/127; PULSE 103; RESP 18; O2SAT 92
[2022-04-14 16:01] LABS: Bacteria Urine 2+ /hpf; RBC Urine 0-4 /hpf (0-2); Squamous Epithelial Cell Urine 0-4 /hpf (0-5)
[2022-04-14 16:02] LABS: Add Urine Culture? Yes; Mucus Urine 3+ /hpf
--- NOTE | 2022-04-14 16:21 | PM.CONSULT ---
Providers/Reason For Consult Consulting Physician/Specialty*: Marco Berman/General Surgery Reason for Consult*: Abdominal pain Requesting Physician: Dr. Scanlon Primary Care Provider: Akira Herzog MD History of Present Illness History of Present Illness Carly Marvin is a 71 year old female. She presented today to the emergency room with acute worsening abdominal pain for about 5-day duration. She started having problems with constipation about 10 days and was taking laxatives daily which improved her condition somewhat. About 5 days ago she started having nausea and vomiting, developed abdominal pain. Nausea was bilious, no blood. She visited emergency room 2 days ago and was discharged home. Her condition continues to deteriorate, pain and vomiting were getting worse and she went to seek medical attention again today. The patient has a history of laparoscopic adjustable band placed many years ago. It was not used. She visited her surgeon at [facility] and was told that the band does not need to be removed. History of cholecystectomy and hysterectomy in the past. History of non-Hodgkin's lymphoma. She received chemotherapy in 2016 and responded initially. However, hemotherapy was held during pandemic and per patient her oncologist told her that lymphoma came back in her abdomen and infections. History lymph node removal from her neck by a local surgeon. The patient is morbidly obese. She is nonambulatory for at least 4 months. History of heart valve problems, she is not sure about other names of leaking valves. Denies any history of heart attack in the past. History of hypertension. The patient is accompanied by multiple family members. Review of Systems Narrative: 10 point review of systems negative except as per above Medications/Allergies Home Medications Medication Instructions Recorded Confirmed Last Taken Type alprazolam 0.5 mg tablet (Xanax) 0.5 mg PO BID PRN Anxiety 10/08/19 04/14/22 Unknown History aspirin 81 mg chewable tablet 81 mg PO BEDTIME 10/08/19 04/14/22 04/13/22 History atorvastatin 20 mg tablet 20 mg PO DAILY 10/08/19 04/14/22 04/13/22 History baclofen 10 mg tablet 10 mg PO QID PRN Pain 10/08/19 04/14/22 04/14/22 History citalopram 20 mg tablet 20 mg PO DAILY 10/08/19 04/14/22 04/14/22 History furosemide 40 mg tablet (Lasix) 40 mg PO DAILY 10/08/19 04/14/22 04/14/22 History levothyroxine 100 mcg capsule 100 mcg PO DAILY 10/08/19 04/14/22 04/14/22 History lisinopril 40 mg tablet 40 mg PO DAILY 10/08/19 04/14/22 04/14/22 History pantoprazole 40 mg tablet,delayed 40 mg PO BID 10/08/19 04/14/22 04/14/22 History release (Protonix) potassium citrate 15 mEq (1,620 15 meq PO BID 10/08/19 04/14/22 04/14/22 History mg) tablet,extended release metoprolol tartrate 25 mg tablet 25 mg PO BID 30 days #60 tabs 01/12/20 04/14/22 04/14/22 Rx acetaminophen 300 mg-codeine 30 mg 2 tab PO TID PRN pain 30 days #180 08/19/21 04/14/22 04/14/22 Rx tablet tabs apixaban 2.5 mg tablet (Eliquis) 2.5 mg PO BID 04/14/22 04/14/22 04/14/22 History diclofenac sodium 1 % topical gel 4 g topical QID PRN Pain 04/14/22 04/14/22 Unknown History ondansetron HCl 4 mg tablet 4 mg PO Q6H PRN Nausea 04/14/22 04/14/22 Unknown History Allergies Allergy/AdvReac Type Severity Reaction Status Date / Time No Known Allergies Allergy Verified 08/16/21 09:32 PFSH Acute PFSH: Medical History Benign essential HTN Bilateral arm pain Chronic left shoulder pain Dyslipidemia (high LDL; low HDL) Encounter for long-term opiate analgesic use History of DVT (deep vein thrombosis) History of rectal injury rectal tear surgery Left hip pain Non-Hodgkin lymphoma Obstructive sleep apnea Opioid contract exists Ventricular arrhythmia Surgical History History of ureter stent Hx of cholecystectomy Hx of dilation and curettage Hx of hysterectomy Hx of laparoscopic gastric banding Hx of tubal ligation Family History Mother Diabetes Hypertension Father Cancer lung Social History Second hand smoke exposure: Yes Alcohol intake: never History of recent travel: No Vitals/I&O/Wt Last Vital Signs Temp 97 F L 04/14/22 12:35 Pulse 104 H 04/14/22 15:45 Resp 18 04/14/22 15:45 BP 158/89 04/14/22 15:45 Pulse Ox 91 04/14/22 15:45 O2 Del Method 04/14/22 15:45 Weight last 48 hrs Weight 350 lb Physical Exam Narrative: General: Mild distress secondary to pain, morbidly obese Psych: [AAOx3] Eyes: [sclerae are white] Head/ENT: [normocephalic, symmetric] CV: [regular] pulse, [tachychardic to low 100s], no JVD, blood pressure 153/92 Lungs: [symmetrical chest rise] Abdomen: [soft, ND, tender to palpation in left epigastric/lateral quadrant areas. No obvious peritoneal signs. Abdominal exam is limited by morbid obesity.] Ext: [no obvious traumatic deformities] Skin: warm Data : 04/14/22 13:33 04/14/22 13:00 Other Labs: Leukocytosis and hemoconcentration noted. Other data: I personally reviewed CT scan. Radiology report was reviewed as well. There is free peritoneal air predominantly in the left upper quadrant around the proximal stomach. No obvious tracking towards the adjustable band. No free fluid noticed. A&P Assessment and plan (1) Small bowel obstruction: Status: Acute (2) History of adjustable gastric banding: Status: Acute (3) Non-Hodgkin lymphoma: Status: Acute Qualifiers: Non-Hodgkin lymphoma type: unspecified type Lymphoma site: neck Qualified Code(s): C85.91 - Non-Hodgkin lymphoma, unspecified, lymph nodes of head, face, and neck (4) Pancreatic lesion: Status: Acute (5) Benign essential HTN: Status: Acute (6) Dyslipidemia (high LDL; low HDL): Status: Acute (7) Ventricular arrhythmia: Status: Acute (8) Obstructive sleep apnea: Status: Acute (9) History of DVT (deep vein thrombosis): Status: Acute (10) Bowel perforation: Status: Acute (11) Non-ST elevation [place] (NSTEMI): Status: Acute Plan Initial differential diagnosis is rather broad. She may have a perforation secondary to bowel obstruction, although, CT scan from 2 days ago did not show bowel obstruction, only relatively nonspecific dilation of the very proximal jejunum and no abnormalities in the pelvis. There is possibly some lesion in the jejunal wall about 20 cm from the ligament of Treitz, however, it does not cause any obstruction. It is not very likely that she developed acute bowel obstruction and perforated in 2 days. Also, there is no free fluid which will likely to be associated with the perforation of the bowel secondary to bowel obstruction. Another possibility is erosion of the gastric band into the proximal stomach. Most of the free air located in left upper abdomen although there is no obvious tracking towards the adjustable band. There is no free fluid as wel. Another possibility is spreading of the lymphoma with subsequent perforation. Also, there is a questionable pancreatic lesion in the head of the pancreas, obstruction or perforation can be caused by a metastatic lesion. The patient will require an exploratory laparotomy. I am not specifically trained to deal with complications of bariatric surgery, in case her proximal stomach is perforated and adjustable band needs to be removed, it may require performance of the esophageal anastomosis/partial gastrectomy. I rarely perform this type of cases. Living here in discontinuity is not the best option. Also, I am concerned about elevated troponins, history of valvular insufficiency and her overall poor health. She has very little reserve. She will require a lot of ICU resources that may not be readily available in the smaller hospital in [place]. Fortunately, her perforation seems to be contained with no spillage of fluid and therefore no physiology of peritonitis at this time. She does not appear septic and sick. She is hemodynamically stable, she has only minimal lactate elevation. She already received 2 L of fluid. I discussed all this information with the patient's family and the patient herself. I think that it is in the best patient interest to be transferred to a higher level of care where the specialist trained to deal with complications of bariatric surgery is available as well as more ICU resources available to deal with complex postoperative care. Possibly, in skilled hands, if the band is problem, the surgery can be performed laparoscopically which will greatly facilitate her recovery. The patient's family requested me to transfer the patient as well given the fact that she had prior surgeries in [facility] in [place]. I discussed the case over the phone with general and bariatric surgeon Dr. Morelos, who happened to be her bariatric surgeon in the past. He accepted the transfer. The patient will be transferred from emergency room to emergency room. The patient is on Eliquis. However, she was vomiting for several days, she is taking small dose of Eliquis as well, 2.5 mg twice a day. I think there is pretty good chance that coags are normal and she has no coagulopathy. I do not think that infusion of the reversal agents r indicated before coags are obtained, I ordered coags stat. The plan was discussed with the patient and her family. Risks and benefits of transfer were discussed and the patient and the family agreed to be transferred to [facility]. The alternative option will be to stay at [place] and have surgery performed here and the familyand the patient opted against it. Coding Level of Care Code Acute Team Facilitator for [facility] Fwd Diagnoses Small bowel obstruction K56.609 History of adjustable gastric banding Z98.84 Non-Hodgkin lymphoma C85.91 Non-Hodgkin lymphoma type: unspecified type Lymphoma site: neck Pancreatic lesion K86.9 Benign essential HTN I10 Dyslipidemia (high LDL; low HDL) E78.5 Ventricular arrhythmia I49.9 Obstructive sleep apnea G47.33 History of DVT (deep vein thrombosis) Z86.718 Bowel perforation K63.1 Non-ST elevation [place] (NSTEMI) I21.4
[2022-04-14 17:00] VITALS: BP 135/101; PULSE 105; RESP 19; O2SAT 91
[2022-04-14 17:26] VITALS: BP 135/101; PULSE 100; RESP 18; O2SAT 92
--- NOTE | 2022-04-14 17:28 | PC.NURSE ---
called report to rylie Sharma RN
--- NOTE | 2022-04-14 17:40 | P.HP_ITS ---
Providers/Chief Complaint Primary Care Provider: Akira Herzog MD Chief Complaint: ABDOMINAL PAIN FOR 1 WEEK History of Present Illness Carly Marvin is a 71 year old female with past medical history of hypertension morbid obesity DVT on Eliquis, non-Hodgkin's lymphoma obstructive sleep apnea,prior cholecystectomy, gastric band, came in with chief complaint of worsening abdominal pain going on for the last 5 days, she was in the ER 2 days back with similar complaint but was discharged home after conservative management, her symptoms has continued to worsen since then currently is also having nausea as well as vomiting. Further work-up in the ER revealed small-bowel obstruction with transition point in the lower abdomen.Small amount of free intraperitoneal air in the left upper quadrant, consistent with viscus perforation. General surgery was consulted by the ER physician, he is of the opinion that given her prior history of gastric bypass, it will not be appropriate to intervene the patient.. Currently she is being transferred to [facility], where her primary surgeon is located. Review of Systems Const: Denies: fever(s), chills, body aches, change in appetite or diaphoresis Card: Denies: palpitations, edema, swelling of feet/ankles, dyspnea on exertion, orthopnea or leg pain with exertion Resp: Denies: dyspnea, productive cough, wheezing or pain on inspiration GI: Reports: abdominal pain, nausea, vomiting and constipation; Denies: diarrhea Medications/Allergies Home Medications Medication Instructions Recorded Confirmed Last Taken Type alprazolam 0.5 mg tablet (Xanax) 0.5 mg PO BID PRN Anxiety 10/08/19 04/14/22 Unknown History aspirin 81 mg chewable tablet 81 mg PO BEDTIME 10/08/19 04/14/22 04/13/22 History atorvastatin 20 mg tablet 20 mg PO DAILY 10/08/19 04/14/22 04/13/22 History baclofen 10 mg tablet 10 mg PO QID PRN Pain 10/08/19 04/14/22 04/14/22 History citalopram 20 mg tablet 20 mg PO DAILY 10/08/19 04/14/22 04/14/22 History furosemide 40 mg tablet (Lasix) 40 mg PO DAILY 10/08/19 04/14/22 04/14/22 History levothyroxine 100 mcg capsule 100 mcg PO DAILY 10/08/19 04/14/22 04/14/22 History lisinopril 40 mg tablet 40 mg PO DAILY 10/08/19 04/14/22 04/14/22 History pantoprazole 40 mg tablet,delayed 40 mg PO BID 10/08/19 04/14/22 04/14/22 History release (Protonix) potassium citrate 15 mEq (1,620 15 meq PO BID 10/08/19 04/14/22 04/14/22 History mg) tablet,extended release metoprolol tartrate 25 mg tablet 25 mg PO BID 30 days #60 tabs 01/12/20 04/14/22 04/14/22 Rx acetaminophen 300 mg-codeine 30 mg 2 tab PO TID PRN pain 30 days #180 08/19/21 04/14/22 04/14/22 Rx tablet tabs apixaban 2.5 mg tablet (Eliquis) 2.5 mg PO BID 04/14/22 04/14/22 04/14/22 History diclofenac sodium 1 % topical gel 4 g topical QID PRN Pain 04/14/22 04/14/22 Unknown History ondansetron HCl 4 mg tablet 4 mg PO Q6H PRN Nausea 04/14/22 04/14/22 Unknown History Allergies Allergy/AdvReac Type Severity Reaction Status Date / Time No Known Allergies Allergy Verified 08/16/21 09:32 PFSH Acute PFSH: Medical History Benign essential HTN Bilateral arm pain Chronic left shoulder pain Dyslipidemia (high LDL; low HDL) Encounter for long-term opiate analgesic use History of DVT (deep vein thrombosis) History of rectal injury rectal tear surgery Left hip pain Non-Hodgkin lymphoma Obstructive sleep apnea Opioid contract exists Ventricular arrhythmia Surgical History History of ureter stent Hx of cholecystectomy Hx of dilation and curettage Hx of hysterectomy Hx of laparoscopic gastric banding Hx of tubal ligation Family History Mother Diabetes Hypertension Father Cancer lung Social History Second hand smoke exposure: Yes Alcohol intake: never History of recent travel: No Vitals/I&O/Wt Last Vital Signs Temp 97 F L 04/14/22 12:35 Pulse 100 04/14/22 17:26 Resp 18 04/14/22 17:26 BP 135/101 04/14/22 17:26 Pulse Ox 92 04/14/22 17:26 O2 Del Method 04/14/22 17:26 Weight last 48 hrs Weight 144.56 kg Physical Exam Const: COMMON NORMALS: patient oriented x3 HENMT: COMMON NORMALS: normocephalic, atraumatic, hearing grossly normal bilaterally and external ears normal EXTERNAL EAR: Yes external ears normal Resp: COMMON NORMALS: clear to auscultation bilaterally EFFORT & INSPECTION: Yes symmetric chest movement AUSCULTATION: clear to auscultation bilaterally Cardio: COMMON NORMALS: regular rate, regular rhythm, S1 normal heart sound present, S2 normal heart sound present, No gallops present (Cardio), No murmurs present (Cardio), No rub (Cardio) and Peripheral pulses 2+ throughout RATE: regular rate RHYTHM: regular rhythm HEART SOUNDS: S1 normal heart sound present and S2 normal heart sound present PERIPHERAL PULSES: Peripheral pulses 2+ throughout GI: RECTAL EXAM: deferred OTHER: Left upper quadrant tenderness present, hypoactive bowel sounds, minimal left upper quadrant guarding, no rigidity no rebound tenderness Data : 04/14/22 13:33 04/14/22 13:00 Micro: Microbiology 04/14/22 15:07 Urine Culture - Final Urine,Clean Catch 04/14/22 17:30 Blood Culture - Preliminary Blood NEGATIVE TO DATE 04/14/22 17:35 Blood Culture - Preliminary Blood NEGATIVE TO DATE A&P Assessment and plan (1) History of adjustable gastric banding: Status: Acute (2) Nausea & vomiting: Status: Acute (3) Non-ST elevation [place] (NSTEMI): Status: Acute (4) Small bowel obstruction: Status: Acute (5) Bowel perforation: Status: Acute (6) History of DVT (deep vein thrombosis): Status: Acute (7) Non-Hodgkin lymphoma: Status: Acute Qualifiers: Non-Hodgkin lymphoma type: unspecified type Lymphoma site: neck Qualified Code(s): C85.91 - Non-Hodgkin lymphoma, unspecified, lymph nodes of head, face, and neck (8) Obstructive sleep apnea: Status: Acute (9) Benign essential HTN: Status: Acute Plan 71 year old female with past medical history of hypertension morbid obesity DVT on Eliquis, non-Hodgkin's lymphoma obstructive sleep apnea,prior cholecystectom y, gastric band, came in with chief complaint of worsening abdominal pain going on for the last 5 days, she was in the ER 2 days back with similar complaint but was discharged home after conservative management, her symptoms has continued to worsen since then currently is also having nausea as well as vomiting. Further work-up in the ER revealed small-bowel obstruction with transition point in the lower abdomen.Small amount of free intraperitoneal air in the left upper quadrant, consistent with viscus perforation. Assessment: Small bowel obstruction Perforated viscus Hypertension Morbid obesity History of DVT History of prior gastric band History of sleep apnea Plan: General surgery was consulted by the ER physician, he is of the opinion that given her prior history of gastric bypass, it will not be appropriate to intervene the patient.. Currently she is being transferred to [facility], where her primary surgeon is located. Attestations Medical Necessity Statement*: Patient is being transferred to higher level of care. Coding Level of Care Code Acute Sensitometrist for [facility] Fwd Diagnoses History of adjustable gastric banding Z98.84 Nausea & vomiting R11.2 Non-ST elevation [place] (NSTEMI) I21.4 Small bowel obstruction K56.609 Bowel perforation K63.1 History of DVT (deep vein thrombosis) Z86.718 Non-Hodgkin lymphoma C85.91 Non-Hodgkin lymphoma type: unspecified type Lymphoma site: neck Obstructive sleep apnea G47.33 Benign essential HTN I10
[2022-04-14 17:57] LABS: Partial Thromboplastin Time 21.3 SECONDS (23.9-36.7)
[2022-04-14 18:03] LABS: Troponin 5 2HR Delta 1.7 ABS# (0-10)
[2022-04-14 18:04] LABS: Troponin 5 2HR 124.7 ng/L (0-10)
--- NOTE | 2022-04-14 18:09 | PC.NURSE ---
johana arrived to transport pt and determined the patient was too large to be transported. now waiting on EMS
== END 2022-04-14 18:39 | disposition admitted as inpatient to this hospital (09) ==
PROVIDERS: Emergency Provider Emergency Medicine; PCP Family Medicine
DX: K56.609 Unspecified intestinal obstruction, unspecified as to partial versus complete obstruction (principal); K63.1 Perforation of intestine (nontraumatic); I21.4 Non-ST elevation (NSTEMI) myocardial infarction; I10 Essential (primary) hypertension; E78.5 Hyperlipidemia, unspecified; Z79.01 Long term (current) use of anticoagulants; Z98.84 Bariatric surgery status; Z90.49 Acquired absence of other specified parts of digestive tract
CPT/HCPCS: 12345; 36415; 74018; 74177; 80053; 81001; 83605; 83690; 84484; 85025; 85610; 85730; 87040; 87086; 93005; 96365; 96375; 99285; J2543; J3490; J7030; Q9967

== ENCOUNTER → 2022-05-26 09:10 | Outpatient (BNVA) | payer MEDICARE, MEDICAID, SELFPAY | PROVIDERS: PCP Family Medicine; Visit Provider Internal Medicine Cardiovascular Disease | DX: E66.01 Morbid (severe) obesity due to excess calories (principal); Z68.43 Body mass index [BMI] 50.0-59.9, adult; E11.9 Type 2 diabetes mellitus without complications; Z79.84 Long term (current) use of oral hypoglycemic drugs; Z98.84 Bariatric surgery status; Z86.718 Personal history of other venous thrombosis and embolism; C85.91 Non-Hodgkin lymphoma, unspecified, lymph nodes of head, face, and neck; G47.33 Obstructive sleep apnea (adult) (pediatric); E78.5 Hyperlipidemia, unspecified; I10 Essential (primary) hypertension; Z79.01 Long term (current) use of anticoagulants | CPT/HCPCS: 99214 ==

== ENCOUNTER 2022-06-30 09:43 | Oncology outpatient (recurring) (ONCR) | payer MEDICARE, MEDICAID, SELFPAY ==
[2022-06-30 10:15] LABS: Basophils # 0.1 10^3/uL (0.0-0.1); Basophils % 0.5 %; Eosinophils # 0.5 10^3/uL (0.0-0.8); Eosinophils % 5.1 %; Hematocrit 45.2 % (37.0-47.0); Hemoglobin 14.3 g/dL (11.5-15.3); Lymphocytes # 2.7 10^3/uL (0.8-4.8); Lymphocytes % 25.7 %; Mean Corpuscular HGB Conc 31.6 g/dL (30.0-36.0); Mean Corpuscular Hemoglobin 31.2 pg (28.0-34.0); Mean Corpuscular Volume 98.7 fl (81-99); Mean Platelet Volume 9.9 fL (7.4-10.4); Monocytes # 0.6 10^3/uL (0.2-0.9); Monocytes % 6.1 %; Neutrophils # 6.47 10^3/uL (1.8-7.7); Neutrophils % 61.6 %; Nucleated Red Blood Cells % 0 %; Platelet Count 255 10^3/cmm (130-400); Red Blood Count 4.58 10^6/uL (4.1-5.3); Red Cell Distribution Width 13.4 % (12.1-15.1); White Blood Count 10.5 10^3/uL (4.0-10.0)
[2022-06-30 10:46] LABS: Alanine Aminotransferase 22 U/L (0-33); Albumin Level 3.5 g/dL (3.5-5.2); Alkaline Phosphatase 116 U/L (35-105); Anion Gap 16.9 (5-19); Aspartate Amino Transferase 20 U/L (0-32); Blood Urea Nitrogen 14 mg/dL (8-23); Calcium 9.3 mg/dL (8.5-10.5); Carbon Dioxide 25 mmol/L (22-29); Chloride 97 mmol/L (98-107); Globulin 2.4 g/dL (1.3-4.6); Glucose 191 mg/dL (65-115); Lactate Dehydrogenase 180 U/L (135-214); Osmolality Calculated 284 mOsm/kg (285-295); Potassium 4.9 mmol/L (3.5-5.1); Sodium 134 mmol/L (136-145); Thyroid Stimulating Hormone 4.29 uIU/mL (0.27-4.20); Total Bilirubin 0.6 mg/dL (0.15-1.2); Total Protein 5.9 g/dL (6.6-8.7)
== END 2022-07-29 23:59 | disposition home or self-care (01) ==
PROVIDERS: PCP Family Medicine; Visit Provider Internal Medicine Medical Oncology
DX: C82.38 Follicular lymphoma grade IIIa, lymph nodes of multiple sites (principal); K56.691 Other complete intestinal obstruction; E66.01 Morbid (severe) obesity due to excess calories; Z68.43 Body mass index [BMI] 50.0-59.9, adult; R53.2 Functional quadriplegia; Z79.52 Long term (current) use of systemic steroids; Z79.891 Long term (current) use of opiate analgesic; Z79.899 Other long term (current) drug therapy
CPT/HCPCS: 36415; 80053; 83615; 84443; 85025; 99215

== ENCOUNTER 2022-09-14 23:59 | Emergency (ER) | payer MEDICARE, MEDICAID, SELFPAY ==
[2022-09-15] VITALS (7 sets, daily range): BP systolic 144–178; BP diastolic 66–82; PULSE 81–86; RESP 18–20; TEMP 36.8; O2SAT 90–94; BMI 52.1
--- NOTE | 2022-09-15 00:13 | ED_ITS ---
Documented by User: CIPRIANO Crandall 09/15/22 01:00 HPI - Nausea/Vomiting/Diarrhea General: Chief complaint: Nausea/Vomiting/Diarrhea Stated complaint: N/V/D Time Seen by Provider: 09/15/22 00:12 History of Present Illness: Patient arrives today via ambulance. Patient reports that after eating lunch at noon today she developed nausea and vomiting. She reports that she has vomited 4 times since lunch it is a bit red in color but she attributes this to the Otts dressing that she had for her lunch. She reports feeling overall distended and bloated and has not passed any gas today. She reports that she has had a similar issue with this back in April or March in which she was transferred to [facility] and stayed in the hospital for at least a week. She denies any fever or chills today. She does offer that she has not ambulatory because of a hip problem. She offers that she has a history of congestive heart failure and arrhythmia. Associated nausea: Yes Associated symtoms: Reports nausea; Denies chest pain or palpitations Review of Systems Const: Denies: fever(s), chills or body aches Card: Denies: chest pain or palpitations Resp: Denies: dyspnea, productive cough or non-productive cough GI: Reports: abdominal pain, nausea, vomiting and diarrhea (Chronic diarrhea per patient); Denies: hematemesis or constipation Musc: Reports: joint pain (Chronic left) [facility] ED PFSH: Medical History Benign essential HTN Bilateral arm pain Chronic left shoulder pain Diabetes mellitus Dyslipidemia (high LDL; low HDL) Encounter for long-term opiate analgesic use GERD (gastroesophageal reflux disease) History of DVT (deep vein thrombosis) History of rectal injury rectal tear surgery Hypothyroidism Left hip pain Morbid obesity Non-Hodgkin lymphoma Obstructive sleep apnea Ventricular arrhythmia Surgical History History of ureter stent Hx of cholecystectomy Hx of dilation and curettage Hx of hysterectomy Hx of laparoscopic gastric banding Hx of tubal ligation Family History Mother Diabetes Hypertension Father Cancer lung Social History Smoking and tobacco status: never smoked Second hand smoke exposure: Yes Alcohol intake: never Physical Exam Const: COMMON NORMALS: no acute distress, patient oriented x3 and alert NUTRITIONAL APPEARANCE: obese morbidly obese Neck/C-Spine: COMMON NORMALS: no JVD Resp: COMMON NORMALS: normal respiratory effort, No use of accessory muscles and clear to auscultation bilaterally AUSCULTATION: clear to auscultation bilaterally Cardio: COMMON NORMALS: no JVD, regular rate, regular rhythm, S1 normal heart sound present and S2 normal heart sound present RATE: regular rate RHYTHM: regular rhythm HEART SOUNDS: S1 normal heart sound present and S2 normal heart sound present GI: INSPECTION: Yes abdominal distension and Yes central obesity AUSCULTATION: Yes Hypoactive bowel sounds present PALPATION: Yes Tenderness to palpation present (GI) Details: LLQ and LUQ Neuro: COMMON NORMALS: patient oriented x3 SENSORIUM/ORIENTATION: Yes alert Course ED course: Transfer care of patient to Dr. Lara as my shift is ending. Labs are ordered work-up started. Vital Signs: Vital signs: Vital Signs Temperature 98.2 F 09/15/22 00:04 Pulse Rate 85 09/15/22 00:04 Respiratory Rate 18 09/15/22 00:04 Blood Pressure 147/66 09/15/22 00:04 Pulse Oximetry 94 09/15/22 00:04 Oxygen Delivery Me thod 09/15/22 00:04 MDM - Nausea/Vomiting/Diarrhea Lab Data 09/15/22 00:28 09/15/22 00:28 Radiology Impressions Abdomen/Pelvis CT 09/15/22 01:06 IMPRESSION: 1. There are scattered irregular hypoattenuation lesions seen within the liver that appear new compared to 04/17/2022. Although these could represent areas of focal fatty infiltration, other lesions such as infiltrating hepatocellular carcinoma, cholangiocarcinoma or infectious etiologies are considerations. Follow-up nonemergent pre and post gadolinium MRI imaging of the abdomen is suggested. 2. Mild diverticulosis of the sigmoid colon Laboratory Results WBC 11.6 10^3/uL (4.0-10.0) H 09/15/22 00:28 RBC 4.85 10^6/uL (4.1-5.3) 09/15/22 00:28 Hgb 15.0 g/dL (11.5-15.3) 09/15/22 00:28 Hct 46.3 % (37.0-47.0) 09/15/22 00: MCV 95.5 fl (81-99) 09/15/22 00: MCH 30.9 pg (28.0-34.0) 09/15/22: MCHC 32.4 g/dL (30.0-36.0) 09/15/22 00: RDW 12.8 % (12.1-15.1) 09/15/22 00: Plt Count 267 10^3/cmm (130-400) 09/15/22 00: MPV 11.3 fL (7.4-10.4) H 09/15/22 00: Neut % (Auto) 79.2 % 09/15/22 00: Lymph % (Auto) 15.0 % 09/15/22: [place] % (Auto) 4.0 % 09/15/22 00: Eos % (Auto) 0.5 % 09/15/22 00: Baso % (Auto) 0.4 % 09/15/22 00:28 Neut # (Auto) 9.20 10^3/uL (1.8-7.7) H 09/15/22 00: Lymph # (Auto) 1.8 10^3/uL (0.8-4.8) 09/15/22 00: [place] # (Auto) 0.5 10^3/uL (0.2-0.9) 09/15/22 00: Eos # (Auto) 0.1 10^3/uL (0.0-0.8) 09/15/22 00: Baso # (Auto) 0.1 10^3/uL (0.0-0.1) 09/15/22 00:28 Nucleated RBC % (auto) 0 % 09/15/22: Nucleated RBCs # 0.0 /100WBC 09/15/22 00: Sodium 136 mmol/L (136-145) 09/15/22 00:28 Potassium 5.2 mmol/L (3.5-5.1) H 09/15/22 00: Chloride 96 mmol/L (98-107) L 09/15/22 00:28 Carbon Dioxide 24 mmol/L (22-29) 09/15/22 00:28 Anion Gap 21.2 (5-19) H 09/15/22 00:28 BUN 17 mg/dL (8-23) 09/15/22 00:28 Creatinine 0.8 mg/dL (0.5-0.9) 09/15/22 00:28 GFR Calculation Not Reportable 09/15/22 00:28 Glucose 424 mg/dL (65-115) H 09/15/22 00:28 POC Glucose 325 mg/dL (70-110) H 09/15/22 02:31 Calculated Osmolality 302 mOsm/kg (285-295) H 09/15/22 00:28 Lactate 2.4 mmol/L (0.5-2.2) H 09/15/22 02:04 Calcium 8.9 mg/dL (8.5-10.5) 09/15/22 00:28 Total Bilirubin 0.6 mg/dL (0.15-1.2) 09/15/22 00:28 AST 30 U/L (0-32) 09/15/22 00:28 ALT 22 U/L (0-33) 09/15/22 00:28 Alkaline Phosphatase 140 U/L (35-105) H 09/15/22 00:28 Total Protein 5.5 g/dL (6.6-8.7) L 09/15/22 00:28 Albumin 4.0 g/dL (3.5-5.2) 09/15/22 00:28 Globulin 1.5 g/dL (1.3-4.6) 09/15/22 00:28 Lipase 68 U/L (13-60) H 09/15/22 00:28 Urine Color Yellow (Yellow) 09/15/22 00:57 Urine Appearance Clear (CLEAR) 09/15/22 00:57 Urine pH 5 (5-7) 09/15/22 00:57 Ur Specific [place] 1.020 (1.005-1.030) 09/15/22 00:57 Urine Protein Neg (Negative) 09/15/22 00:57 Urine Glucose (UA) 4+ (Normal) H 09/15/22 00:57 Urine Ketones Negative (Negative) 09/15/22 00:57 Urine Blood Neg (Negative) 09/15/22 00:57 Urine Nitrate Negative (Negative) 09/15/22 00:57 Urine Bilirubin Neg (Negative) 09/15/22 00:57 Urine Urobilinogen Norm mg/dL (Negative) 09/15/22 00:57 Ur Leukocyte Esterase Negative (Negative) 09/15/22 00:57 Discharge Plan Discharge Patient Disposition: Home Clinical Impression: Vomiting Condition: Stable Prescriptions: New ondansetron 4 mg tablet,disintegrating 4 mg PO Q6H PRN (Reason: nausea and vomiting) Qty: 14 0RF No Action atorvastatin 20 mg tablet 40 mg PO DAILY losartan 25 mg tablet 25 mg PO DAILY metoprolol succinate 100 mg tablet extended release 24 hr 100 mg PO DAILY potassium chloride 20 mEq tablet extended release 20 meq PO DAILY spironolactone 25 mg tablet 25 mg PO DAILY potassium citrate 15 mEq tablet extended release 15 meq PO BID Qty: 60 0RF Aspir-81 81 mg Tablet,Delayed Release (Dr/Ec) 81 mg PO DAILY alprazolam 0.5 mg tablet 0.5 mg PO BID PRN (Reason: Anxiety) citalopram 20 mg tablet 20 mg PO DAILY baclofen 10 mg tablet 10 mg PO QID PRN (Reason: Muscle Spasm) pantoprazole 40 mg tablet,delayed release (DR/EC) 40 mg PO BID acetaminophen-codeine 300-60 mg tablet 1 tab PO Q6H furosemide 40 mg tablet 40 mg PO BID Eliquis 2.5 mg tablet 5 mg PO BID Discharge Orders: Discharge ED (Routine); Ordered 09/15/22 Ordered By: Álvaro Lara Referrals: Akira Herzog MD [Primary Care Provider] - 1-3 days Discharge Diet: Advance as tolerated Discharge Activity: Resume usual activity Patient Instructions: Acute Nausea and Vomiting (ED) Coding Level of Care Code ED Extractor Machine Operator for Chg Fwd Documented by User: Álvaro Lara MD 09/15/22 03:43 HPI - Nausea/Vomiting/Diarrhea General: Chief complaint: Nausea/Vomiting/Diarrhea Stated complaint: N/V/D Time Seen by Provider: 09/15/22 00:12 [facility] ED PFSH: Medical History Benign essential HTN Bilateral arm pain Chronic left shoulder pain Diabetes mellitus Dyslipidemia (high LDL; low HDL) Encounter for long-term opiate analgesic use GERD (gastroesophageal reflux disease) History of DVT (deep vein thrombosis) History of rectal injury rectal tear surgery Hypothyroidism Left hip pain Morbid obesity Non-Hodgkin lymphoma Obstructive sleep apnea Ventricular arrhythmia Surgical History History of ureter stent Hx of cholecystectomy Hx of dilation and curettage Hx of hysterectomy Hx of laparoscopic gastric banding Hx of tubal ligation Family History Mother Diabetes Hypertension Father Cancer lung Social History Smoking and tobacco status: never smoked Second hand smoke exposure: Yes Alcohol intake: never Course Vital Signs: Vital signs: Vital Signs Temperature 98.2 F 09/15/22 00:04 Pulse Rate 85 09/15/22 00:04 Respiratory Rate 18 09/15/22 00:04 Blood Pressure 147/66 09/15/22 00:04 Pulse Oximetry 94 09/15/22 00:04 Oxygen Delivery Me thod 09/15/22 00:04 MDM - Nausea/Vomiting/Diarrhea Medical Decision Making Patient presents here with vomiting blood work is normal she feels much improved CT scan showed no acute findings I did inform her of the findings of her liver she is to follow-up with her oncologist she is to return if worsening she understands agrees to plan. Lab Data 09/15/22 00:28 09/15/22 00:28 Radiology Impressions Abdomen/Pelvis CT 09/15/22 01:06 IMPRESSION: 1. There are scattered irregular hypoattenuation lesions seen within the liver that appear new compared to 04/17/2022. Although these could represent areas of focal fatty infiltration, other lesions such as infiltrating hepatocellular carcinoma, cholangiocarcinoma or infectious etiologies are considerations. Follow-up nonemergent pre and post gadolinium MRI imaging of the abdomen is suggested. 2. Mild diverticulosis of the sigmoid colon Laboratory Results WBC 11.6 10^3/uL (4.0-10.0) H 09/15/22 00:28 RBC 4.85 10^6/uL (4.1-5.3) 09/15/22 00:28 Hgb 15.0 g/dL (11.5-15.3) 09/15/22 00: Hct 46.3 % (37.0-47.0) 09/15/22 00: MCV 95.5 fl (81-99) 09/15/22 00: MCH 30.9 pg (28.0-34.0) 09/15/22 00: MCHC 32.4 g/dL (30.0-36.0) 09/15/22 00: RDW 12.8 % (12.1-15.1) 09/15/22 00: Plt Count 267 10^3/cmm (130-400) 09/15/22 00: MPV 11.3 fL (7.4-10.4) H 09/15/22 00:28 Neut % (Auto) 79.2 % 09/15/22 00: Lymph % (Auto) 15.0 % 09/15/22 00:28 [place] % (Auto) 4.0 % 09/15/22 00:28 Eos % (Auto) 0.5 % 09/15/22 00:28 Baso % (Auto) 0.4 % 09/15/22 00:28 Neut # (Auto) 9.20 10^3/uL (1.8-7.7) H 09/15/22 00:28 Lymph # (Auto) 1.8 10^3/uL (0.8-4.8) 09/15/22 00:28 [place] # (Auto) 0.5 10^3/uL (0.2-0.9) 09/15/22 00:28 Eos # (Auto) 0.1 10^3/uL (0.0-0.8) 09/15/22 00: Baso # (Auto) 0.1 10^3/uL (0.0-0.1) 09/15/22 00:28 Nucleated RBC % (auto) 0 % 09/15/22 00: Nucleated RBCs # 0.0 /100WBC 09/15/22 00:28 Sodium 136 mmol/L (136-145) 09/15/22 00:28 Potassium 5.2 mmol/L (3.5-5.1) H 09/15/22 00:28 Chloride 96 mmol/L (98-107) L 09/15/22 00:28 Carbon Dioxide 24 mmol/L (22-29) 09/15/22 00:28 Anion Gap 21.2 (5-19) H 09/15/22 00:28 BUN 17 mg/dL (8-23) 09/15/22 00:28 Creatinine 0.8 mg/dL (0.5-0.9) 09/15/22 00:28 GFR Calculation Not Reportable 09/15/22 00:28 Glucose 424 mg/dL (65-115) H 09/15/22 00:28 POC Glucose 325 mg/dL (70-110) H 09/15/22 02:31 Calculated Osmolality 302 mOsm/kg (285-295) H 09/15/22 00:28 Lactate 2.4 mmol/L (0.5-2.2) H 09/15/22 02:04 Calcium 8.9 mg/dL (8.5-10.5) 09/15/22 00:28 Total Bilirubin 0.6 mg/dL (0.15-1.2) 09/15/22 00:28 AST 30 U/L (0-32) 09/15/22 00:28 ALT 22 U/L (0-33) 09/15/22 00:28 Alkaline Phosphatase 140 U/L (35-105) H 09/15/22 00:28 Total Protein 5.5 g/dL (6.6-8.7) L 09/15/22 00:28 Albumin 4.0 g/dL (3.5-5.2) 09/15/22 00:28 Globulin 1.5 g/dL (1.3-4.6) 09/15/22 00:28 Lipase 68 U/L (13-60) H 09/15/22 00:28 Urine Color Yellow (Yellow) 09/15/22 00:57 Urine Appearance Clear (CLEAR) 09/15/22 00:57 Urine pH 5 (5-7) 09/15/22 00:57 Ur Specific [place] 1.020 (1.005-1.030) 09/15/22 00:57 Urine Protein Neg (Negative) 09/15/22 00:57 Urine Glucose (UA) 4+ (Normal) H 09/15/22 00:57 Urine Ketones Negative (Negative) 09/15/22 00:57 Urine Blood Neg (Negative) 09/15/22 00:57 Urine Nitrate Negative (Negative) 09/15/22 00:57 Urine Bilirubin Neg (Negative) 09/15/22 00:57 Urine Urobilinogen Norm mg/dL (Negative) 09/15/22 00:57 Ur Leukocyte Esterase Negative (Negative) 09/15/22 00:57 Discharge Plan Discharge Patient Disposition: Home Clinical Impression: Vomiting Condition: Stable Prescriptions: New ondansetron 4 mg tablet,disintegrating 4 mg PO Q6H PRN (Reason: nausea and vomiting) Qty: 14 0RF No Action atorvastatin 20 mg tablet 40 mg PO DAILY losartan 25 mg tablet 25 mg PO DAILY metoprolol succinate 100 mg tablet extended release 24 hr 100 mg PO DAILY potassium chloride 20 mEq tablet extended release 20 meq PO DAILY spironolactone 25 mg tablet 25 mg PO DAILY potassium citrate 15 mEq tablet extended release 15 meq PO BID Qty: 60 0RF Aspir-81 81 mg Tablet,Delayed Release (Dr/Ec) 81 mg PO DAILY alprazolam 0.5 mg tablet 0.5 mg PO BID PRN (Reason: Anxiety) citalopram 20 mg tablet 20 mg PO DAILY baclofen 10 mg tablet 10 mg PO QID PRN (Reason: Muscle Spasm) pantoprazole 40 mg tablet,delayed release (DR/EC) 40 mg PO BID acetaminophen-codeine 300-60 mg tablet 1 tab PO Q6H furosemide 40 mg tablet 40 mg PO BID Eliquis 2.5 mg tablet 5 mg PO BID Discharge Orders: Discharge ED (Routine); Ordered 09/15/22 Ordered By: Álvaro Lara Referrals: Akira Herzog MD [Primary Care Provider] - 1-3 days Discharge Diet: Advance as tolerated Discharge Activity: Resume usual activity Patient Instructions: Acute Nausea and Vomiting (ED) Coding Level of Care Code ED Extractor Machine Operator for Sharon Chinchilla
[2022-09-15 00:49] LABS: Basophils # 0.1 10^3/uL (0.0-0.1); Basophils % 0.4 %; Eosinophils # 0.1 10^3/uL (0.0-0.8); Eosinophils % 0.5 %; Hematocrit 46.3 % (37.0-47.0); Lymphocytes # 1.8 10^3/uL (0.8-4.8); Mean Corpuscular HGB Conc 32.4 g/dL (30.0-36.0); Mean Corpuscular Hemoglobin 30.9 pg (28.0-34.0); Mean Corpuscular Volume 95.5 fl (81-99); Mean Platelet Volume 11.3 fL (7.4-10.4); Monocytes # 0.5 10^3/uL (0.2-0.9); Neutrophils % 79.2 %; Nucleated Red Blood Cells % 0 %; Platelet Count 267 10^3/cmm (130-400); Red Blood Count 4.85 10^6/uL (4.1-5.3); Red Cell Distribution Width 12.8 % (12.1-15.1); White Blood Count 11.6 10^3/uL (4.0-10.0)
[2022-09-15 01:03] LABS: Add Urine Microscopic? NO; Charge for UA Resulting for Rev
[2022-09-15 01:03] LABS: Alanine Aminotransferase 22 U/L (0-33); Aspartate Amino Transferase 30 U/L (0-32); Blood Urea Nitrogen 17 mg/dL (8-23); Calcium 8.9 mg/dL (8.5-10.5); Carbon Dioxide 24 mmol/L (22-29); Globulin 1.5 g/dL (1.3-4.6); Sodium 136 mmol/L (136-145); Total Bilirubin 0.6 mg/dL (0.15-1.2)
[2022-09-15] MEDS: sodium chloride 0.9% 1,000 ML 999 ML IV (01:05)
[2022-09-15] MEDS: ondansetron 2 mg/ML SDV 2 mL 4 MG IVP ×3 (01:05→05:50)
--- NOTE | 2022-09-15 01:06 | CTR_ITS ---
PROCEDURE INFORMATION: Exam: CT Abdomen And Pelvis With Contrast Exam date and time: 09/15/2022 1:29 AM Age: 72 years old Clinical indication: Abnormal findings; Abnormal lab test; Nausea and vomiting; Prior surgery; Surgery type: Lap band. Gb. Appy. Hysterectomy. Patient HX: C/O n/v/d. Elevated wbc. ; Additional info: Abd pain TECHNIQUE: Imaging protocol: Computed tomography of the abdomen and pelvis with contrast. Radiation optimization: All CT scans at this facility use at least one of these dose optimization techniques: automated exposure control; mA and/or kV adjustment per patient size (includes targeted exams where dose is matched to clinical indication); or iterative reconstruction. Contrast material: OMNI 350; Contrast volume: 100 ml; Contrast route: INTRAVENOUS (IV); Other protocol: This patient has received 4 known CTs and 0 known cardiac nuclear medicine studies in the 12 months prior to the current study. COMPARISON: MR abdomen wo/w con* [id number] 04/17/2022 7:23 PM RADIATION DOSE METRICS: Total DLP (mGy-cm): 1571.43 FINDINGS: Tubes, catheters and devices: Status post band procedure. A Hayes catheter is present. Liver: Irregular hypoattenuation lesions are seen within the liver, the largest seen in the right hepatic lobe adjacent to Lawson's pouch. These are new compared with 04/17/2022. Although this could represent focal fatty infiltration, other infiltrating lesions such as a infiltrating hepatocellular carcinoma, cholangiocarcinoma and infectious etiologies are considerations. Gallbladder and bile ducts: Status post cholecystectomy. Pancreas: Normal. No ductal dilation. Spleen: Normal. No splenomegaly. Adrenal glands: Normal. No mass. Kidneys and ureters: Normal. No hydronephrosis. Stomach and bowel: Few diverticula are seen on the sigmoid colon. There are no inflammatory changes seen to suggest diverticulitis. Appendix: Status post appendectomy. Intraperitoneal space: See Liver finding. Vasculature: Unremarkable. No abdominal aortic aneurysm. Lymph nodes: Unremarkable. No enlarged lymph nodes. Urinary bladder: Bladder appears decompressed. Reproductive: Status post hysterectomy. Bones/joints: Unremarkable. No acute fracture. Soft tissues: Unremarkable. CT/CT abdomen pelvis w con* [id number] IMPRESSION: 1. There are scattered irregular hypoattenuation lesions seen within the liver that appear new compared to 04/17/2022. Although these could represent areas of focal fatty infiltration, other lesions such as infiltrating hepatocellular carcinoma, cholangiocarcinoma or infectious etiologies are considerations. Follow-up nonemergent pre and post gadolinium MRI imaging of the abdomen is suggested. 2. Mild diverticulosis of the sigmoid colon
[2022-09-15 01:09] LABS: Bilirubin Urine Neg (Negative); Blood Urine Neg (Negative); Glucose Urine UA 4+ (Normal); Ketones Urine Negative (Negative); Nitrate Urine Negative (Negative); Protein Urine Neg (Negative); Urine Appearance Clear (CLEAR); Urine Color Yellow (Yellow); pH Urine 5 (5-7)
[2022-09-15 01:10] LABS: Leukocyte Esterase Urine Negative (Negative); Urobilinogen Urine Norm (Negative)
[2022-09-15 01:25] LABS: Alkaline Phosphatase 140 U/L (35-105); Chloride 96 mmol/L (98-107); Glucose 424 mg/dL (65-115); Lipase 68 U/L (13-60); Osmolality Calculated 302 mOsm/kg (285-295); Total Protein 5.5 g/dL (6.6-8.7)
[2022-09-15 01:26] LABS: Anion Gap 21.2 (5-19); Potassium 5.2 mmol/L (3.5-5.1)
[2022-09-15] MEDS: iohexol 350 mg/mL 500 mL Btl (per mL) IV (01:32)
[2022-09-15] MEDS: insulin regular-human 100 units/1 mL 10 UNIT IVP (01:59)
[2022-09-15 02:35] LABS: Glucose Point of Care 325 mg/dL (70-110)
[2022-09-15 02:52] LABS: Lactate (Lactic Acid level) 2.4 mmol/L (0.5-2.2)
[2022-09-15] MEDS: morphine 4 mg/mL SDV 1 mL IVP (04:20)
== END 2022-09-15 07:40 | disposition home or self-care (01) ==
PROVIDERS: Nurse Practitioner Family; Emergency Provider Emergency Medicine; PCP Family Medicine
DX: R11.11 Vomiting without nausea (principal); Z79.82 Long term (current) use of aspirin; Z79.01 Long term (current) use of anticoagulants; K57.30 Diverticulosis of large intestine without perforation or abscess without bleeding; I10 Essential (primary) hypertension; E11.9 Type 2 diabetes mellitus without complications; E78.5 Hyperlipidemia, unspecified; Z85.72 Personal history of non-Hodgkin lymphomas; Z77.22 Contact with and (suspected) exposure to environmental tobacco smoke (acute) (chronic)
CPT/HCPCS: 36416; 74177; 80053; 81003; 82962; 83605; 83690; 85025; 96374; 96375; 96376; 99285; J1815; J2270; J2405; J7030; Q9967